=== PATIENT | female | born 1955 | race Hispanic/Latino ===

== ENCOUNTER 2018-10-30 20:27 | Observation (INO) | payer OTHER ==
--- NOTE | 2018-10-30 22:35 | ER ---
Nurse's Notes [facility] Name: Lety Beach Age: 63 yrs Sex: Female : 1955 Arrival Date: 10/30/2018 Time: 20:31 Bed 7 Private MD: Diagnosis: Petechial Hemorrhages parietal lobes Presentation: 10/30 20:35 Presenting complaint: Patient states: that she was standing in the kitchen, went to turn and was knocked over by the dogs. Did hit her head on the right side. Also having pain to right hand, right hip and right ankle. Transition of care: patient was not received from another setting of care. Onset of symptoms was October 30, 2018 at 12:00. Risk Assessment: Do you want to hurt yourself or someone else? Patient reports no desire to harm self or others. Initial Sepsis Screen: Does the patient meet any 2 criteria? No. Patient's initial sepsis screen is negative. Does the patient have a suspected source of infection? No. Patient's initial sepsis screen is negative. Care prior to arrival: Ice pack applied to injury. Medication(s) given: Mobic 7.5 mg at noon. 20:35 Method Of Arrival: Wheelchair 20:35 Acuity: RICHAR 3 fc Historical: - Allergies: 20:48 EGG/POULTRY; fc - Home Meds: 20:48 lisinopril 20 mg Oral tab 1 tab once daily [Active]; Lexapro 20 mg Oral tab 1 tab once fc daily [Active]; atorvastatin 20 mg oral tab 1 tab once daily [Active]; metformin 1,000 mg Oral tab 1 tab 2 times per day [Active]; - PMHx: 20:48 Diabetes - NIDDM; Depression; Hypertension; High Cholesterol; fc - PSHx: 20:48 Hysterectomy; moles removed from left breast and right hand; - Immunization history:: Last tetanus immunization: unknown, Flu vaccine is up to date. - Social history:: Smoking status: Patient uses tobacco products, smokes one-half pack cigarettes per day, Patient/guardian denies using alcohol, street drugs. - Ebola Screening: : Patient negative for fever greater than or equal to 101.5 degrees Fahrenheit, and additional compatible Ebola Virus Disease symptoms Patient denies exposure to infectious person Patient denies travel to an Ebola-affected area in the 21 days before illness onset. Screenin:46 Abuse screen: Denies threats or abuse. Nutritional screening: No deficits noted. fc Tuberculosis screening: No symptoms or risk factors identified. Fall Risk None identified. Assessment: 21:01 General: Appears in no apparent distress. uncomfortable, Behavior is calm, cooperative, aj1 appropriate for age. Pain: Complains of pain in face, right hip, dorsal aspect of proximal phalanx of right thumb, palmar aspect of proximal phalanx of right thumb and right ankle. Neuro: Level of Consciousness is awake, alert, obeys commands, Oriented to person, place, time, situation, Speech is normal, Facial symmetry appears normal, Denies LOC. Cardiovascular: Patient's skin is warm and dry. Respiratory: Airway is patent Respiratory effort is even, unlabored, Respiratory pattern is regular, symmetrical. GI: No signs and/or symptoms were reported involving the gastrointestinal system. : No signs and/or symptoms were reported regarding the genitourinary system. EENT: No signs and/or symptoms were reported regarding the EENT system. Derm: No signs and/or symptoms reported regarding the dermatologic system. Skin is pink, warm \\T\\ dry. normal. Musculoskeletal: Range of motion: limited in right hip, right ankle, MCP of right thumb and CMC of right thumb Swelling present in right ankle. 22:25 Reassessment: Patient appears in no apparent distress at this time. Patient and/or ed1 family updated on plan of care and expected duration. Pain level reassessed. Patient is alert, oriented x 3, equal unlabored respirations, skin warm/dry/pink. Patient states symptoms have not improved. 23:44 Reassessment: Patient appears in no apparent distress at this time. Patient and/or ed1 family updated on plan of care and expected duration. Pain level reassessed. Patient is alert, oriented x 3, equal unlabored respirations, skin warm/dry/pink. Patient states symptoms have not improved. 23:51 Reassessment: Attempt to call report, spoke with Janet "Nurse is currently busy with ed1 another patient right now. Will call back.". Vital Signs: 20:35 BP 126 / 64; Pulse 84; Resp 18; Temp 98.3(O); Pulse Ox 98% on R/A; Weight 102.97 kg fc (R); Height 5 ft. 4 in. (162.56 cm) (R); Pain 8/10; 22:24 BP 103 / 56; Pulse 74; Resp 16; Pulse Ox 100% on R/A; mt 22:25 BP 103 / 54; Pulse 73; Resp 17; Pulse Ox 100% on R/A; Pain 8/10; ed1 23:44 BP 110 / 48; Pulse 80; Resp 18; Temp 97.2(O); Pulse Ox 98% on R/A; Pain 8/10; ed1 10/31 00:21 Pain 6/10; ed1 10/30 20:35 Body Mass Index 38.96 (102.97 kg, 162.56 cm) ED Course: 10/30 20:31 Patient arrived in ED. ag3 20:35 Arm band placed on Patient placed in an exam room, on a stretcher. fc 20:36 Leonard Caldwell PA is PHCP. jr8 20:36 Jorje Reno MD is Attending Physician. jr8 20:45 Triage completed. fc 20:46 Patient has correct armband on for positive identification. Bed in low position. Call fc light in reach. Side rails up X 1. Pulse ox on. NIBP on. 20:46 No provider procedures requiring assistance completed. 20:54 Gila Kaiser, RN is Primary Nurse. aj1 21:[address] via stretcher. vm2 21:17 CT completed. Patient tolerated procedure well. Patient moved to radiology. vm2 21:17 CT Head Brain wo Cont In Process Unspecified. EDMS 21:34 XRAY Hand RIGHT 3 View In Process Unspecified. EDMS 21:34 XRAY Hip RIGHT 2 view In Process Unspecified. EDMS 21:34 XRAY Ankle RIGHT 3 view In Process Unspecified. EDMS 22:24 Primary Nurse role handed off by Gila Kaiser, RN ed1 22:24 Kavita Greene, LUIS EDUARDO is Primary Nurse. ed1 22:34 Deb Estevez MD is Hospitalizing Provider. jr8 22:35 Inserted saline lock: 20 gauge in right antecubital area, using aseptic technique. mt Blood collected. 22:46 Initial lab(s) drawn, by co, sent to lab. Surya wrap to right ankle. ed1 10/31 00:21 Patient admitted, IV remains in place. intact, No redness/swelling at site. ed1 Administered Medications: 10/30 23:46 Drug: fentaNYL (PF) 50 mcg Route: IVP; Site: right antecubital; ed1 10/31 00:21 Follow up: Pain 6/10 Adult; Response: No adverse reaction; Pain is decreased ed1 10/30 23:46 Drug: Zofran 4 mg Route: IVP; Site: right antecubital; ed1 10/31 00:22 Follow up: Response: No adverse reaction; Nausea is decreased ed1 Outcome: 10/30 22:34 Decision to Hospitalize by Provider. jr8 10/31 00:19 Admitted to Med/surg accompanied by tech, family with patient, via stretcher, room 202, ed1 with chart. Condition: stable Discharge instructions given to patient, Instructed on the need for admit, Demonstrated understanding of instructions. 00:32 Patient left the ED. ed1 Signatures: Dispatcher [employer] EDMS Gila Kaiser RN RN aj1 Shanell Beatty RN RN fc Riggs, Erika, RN RN ed1 Leonard Caldwell PA PA jr8 Natalia Guillen Moriah mt Gomez, Alice ag3 Corrections: (The following items were deleted from the chart) 10/30 23:45 22:46 Inserted saline lock: 20 gauge in right antecubital area, using aseptic ed1 technique. ed1
--- NOTE | 2018-10-30 22:35 | EDPHYS ---
Physician Documentation [facility] Name: Lety Beach Age: 63 yrs Sex: Female : 1955 Arrival Date: 10/30/2018 Time: 20:31 Bed 7 Private MD: ED Physician Jorje Reno HPI: 10/30 21:36 This 63 yrs old Female presents to ER via Wheelchair with complaints of Fall jr8 Injury. 21:36 Onset: The symptoms/episode began/occurred acutely, today. Associated injuries: The jr8 patient sustained injury to the head, right arm and right leg. Severity of symptoms: At their worst the symptoms were mild, in the emergency department the symptoms are unchanged. The patient has not experienced similar symptoms in the past. The patient has not recently seen a physician. Tripped while trying to manage her dogs at home. Denies LOC. Landed on right side. Complains of right ankle, hand, hip pain. Complains of head pain . Historical: - Allergies: 20:48 EGG/POULTRY; fc - Home Meds: 20:48 lisinopril 20 mg Oral tab 1 tab once daily [Active]; Lexapro 20 mg Oral tab 1 tab once fc daily [Active]; atorvastatin 20 mg oral tab 1 tab once daily [Active]; metformin 1,000 mg Oral tab 1 tab 2 times per day [Active]; - PMHx: 20:48 Diabetes - NIDDM; Depression; Hypertension; High Cholesterol; fc - PSHx: 20:48 Hysterectomy; moles removed from left breast and right hand; fc - Immunization history:: Last tetanus immunization: unknown, Flu vaccine is up to date. - Social history:: Smoking status: Patient uses tobacco products, smokes one-half pack cigarettes per day, Patient/guardian denies using alcohol, street drugs. - Ebola Screening: : Patient negative for fever greater than or equal to 101.5 degrees Fahrenheit, and additional compatible Ebola Virus Disease symptoms Patient denies exposure to infectious person Patient denies travel to an Ebola-affected area in the 21 days before illness onset. ROS: 21:36 Eyes: Negative for injury, pain, redness, and discharge, ENT: Negative for injury, jr8 pain, and discharge, Neck: Negative for injury, pain, and swelling, Cardiovascular: Negative for chest pain, palpitations, and edema, Respiratory: Negative for shortness of breath, cough, wheezing, and pleuritic chest pain, Abdomen/GI: Negative for abdominal pain, nausea, vomiting, diarrhea, and constipation, Back: Negative for injury and pain, Skin: Negative for injury, rash, and discoloration. 21:36 MS/extremity: Positive for pain, tenderness, of the right hand, right ankle, right hip. 21:36 Neuro: Positive for headache, Negative for altered mental status, dizziness, gait disturbance, hearing loss, loss of consciousness, numbness, seizure activity, speech changes, syncope, near syncope, tingling, tinnitus, tremor, visual changes, weakness. Exam: 21:43 Eyes: Pupils equal round and reactive to light, extra-ocular motions intact. Lids and jr8 lashes normal. Conjunctiva and sclera are non-icteric and not injected. Cornea within normal limits. Periorbital areas with no swelling, redness, or edema. ENT: Nares patent. No nasal discharge, no septal abnormalities noted. Tympanic membranes are normal and external auditory canals are clear. Oropharynx with no redness, swelling, or masses, exudates, or evidence of obstruction, uvula midline. Mucous membranes moist. Neck: Trachea midline, no thyromegaly or masses palpated, and no cervical lymphadenopathy. Supple, full range of motion without nuchal rigidity, or vertebral point tenderness. No Meningismus. Cardiovascular: Regular rate and rhythm with a normal S1 and S2. No gallops, murmurs, or rubs. Normal PMI, no JVD. No pulse deficits. Respiratory: Lungs have equal breath sounds bilaterally, clear to auscultation and percussion. No rales, rhonchi or wheezes noted. No increased work of breathing, no retractions or nasal flaring. Abdomen/GI: Soft, non-tender, with normal bowel sounds. No distension or tympany. No guarding or rebound. No evidence of tenderness throughout. Back: No spinal tenderness. No costovertebral tenderness. Full range of motion. Skin: Warm, dry with normal turgor. Normal color with no rashes, no lesions, and no evidence of cellulitis. Neuro: Awake and alert, GCS 15, oriented to person, place, time, and situation. Cranial nerves II-XII grossly intact. Motor strength 5/5 in all extremities. Sensory grossly intact. Cerebellar exam normal. Normal gait. 21:43 Musculoskeletal/extremity: Extremities: grossly normal except: noted in the right hand: pain, tenderness, noted in the right ankle: pain, swelling, tenderness, lateral malleolus , noted in the right hip: pain, tenderness, Circulation is intact in all extremities. Sensation intact. Vital Signs: 20:35 BP 126 / 64; Pulse 84; Resp 18; Temp 98.3(O); Pulse Ox 98% on R/A; Weight 102.97 kg fc (R); Height 5 ft. 4 in. (162.56 cm) (R); Pain 8/10; 22:24 BP 103 / 56; Pulse 74; Resp 16; Pulse Ox 100% on R/A; mt 22:25 BP 103 / 54; Pulse 73; Resp 17; Pulse Ox 100% on R/A; Pain 8/10; ed1 23:44 BP 110 / 48; Pulse 80; Resp 18; Temp 97.2(O); Pulse Ox 98% on R/A; Pain 8/10; ed1 10/31 00:21 Pain 6/10; ed1 10/30 20:35 Body Mass Index 38.96 (102.97 kg, 162.56 cm) fc MDM: 10/30 20:36 Patient medically screened. jr8 22:27 Data reviewed: vital signs, nurses notes, lab test result(s), radiologic studies, CT jr8 scan, plain films. Data interpreted: Pulse oximetry: on room air is 100 %. Interpretation: normal. Counseling: I had a detailed discussion with the patient and/or guardian regarding: the historical points, exam findings, and any diagnostic results supporting the discharge/admit diagnosis, lab results, radiology results, the need for further work-up and treatment in the hospital. ED course: Consulted Dr. Bean about the petechial hemorrhages noted bilaterally. Agrees that she does not need to be transferred. Can be observed here and repeat image in the morning. Dr. Estevez agrees as well. Patient will be observed upstairs . 10/30 22:27 Order name: CBC w/o diff; Complete Time: 23:02 jr8 10/30 22:27 Order name: Basic Metabolic Panel; Complete Time: 23:15 jr8 10/30 23:20 Order name: CBC with Automated Diff EDAL 10/30 23:20 Order name: CBC with Automated Diff EDMS 10/30 23:20 Order name: Comprehensive Metabolic Panel EDMS 10/30 23:20 Order name: Comprehensive Metabolic Panel EDMS 10/30 21:02 Order name: XRAY Hand RIGHT 3 View jr8 10/30 21:02 Order name: CT Head Brain wo Cont jr8 10/30 21:02 Order name: XRAY Hip RIGHT 2 view jr8 10/30 21:02 Order name: XRAY Ankle RIGHT 3 view 8 10/30 23:21 Order name: Urine Drug Screen EDMS 10/30 23:21 Order name: CBC with Automated Diff EDMS 10/30 23:22 Order name: Comprehensive Metabolic Panel EDAL 10/30 22:27 Order name: IV; Complete Time: 22:46 8 10/30 22:27 Order name: Surya Wrap; Complete Time: 22:46 [facility] 10/30 23:20 Order name: CONS Pharmacy Consult EDAL 10/30 23:20 Order name: CONS Physician Consult EDAL 10/30 23:20 Order name: [facility] EDAL Administered Medications: 23:46 Drug: fentaNYL (PF) 50 mcg Route: IVP; Site: right antecubital; ed1 10/31 00:21 Follow up: Pain 6/10 Adult; Response: No adverse reaction; Pain is decreased ed1 10/30 23:46 Drug: Zofran 4 mg Route: IVP; Site: right antecubital; ed1 10/31 00:22 Follow up: Response: No adverse reaction; Nausea is decreased ed1 Disposition: 06:10 Co-signature as Attending Physician, Jorje Reno MD I agree with the assessment and tw4 plan of care. Disposition: 10/30/18 22:34 Hospitalization ordered by Deb Estevez for Observation. Preliminary diagnosis is Petechial Hemorrhages parietal lobes . - Bed requested for Telemetry/MedSurg (observation). - Status is Observation. ed1 - Condition is Stable. - Problem is new. - Symptoms have improved. UTI on Admission? No Signatures: Dispatcher [employer] EDAL Shanell Beatty RN LUIS EDUARDO Kavita Greene RN RN ed1 Leonard Caldwell, WAQAR PA jr8 Deja Campuzano RN RN cg Wadley, Terrence, MD MD tw4 Corrections: (The following items were deleted from the chart) 10/30 23:31 22:34 Hospitalization Ordered by Deb Estevez MD for Observation. Preliminary cg diagnosis is Petechial Hemorrhages parietal lobes . Bed requested for Telemetry/MedSurg (observation). Status is Observation. Condition is Stable. Problem is new. Symptoms have improved. UTI on Admission? No. jr8 10/31 00:32 10/30 23:31 10/30/2018 22:34 Hospitalization Ordered by Deb Estevez MD for ed1 Observation. Preliminary diagnosis is Petechial Hemorrhages parietal lobes . Bed requested for Telemetry/MedSurg (observation). Status is Observation. Condition is Stable. Problem is new. Symptoms have improved. UTI on Admission? No. cg
[2018-10-30 22:51] LABS: Hematocrit 41.6 % (36.0-45.0); MPV 9.5 fL (7.6-11.3); RBC Red Blood Cell Count 4.48 M/uL (3.86-4.86)
[2018-10-30] MEDS ORDERED: MORPHINE 2 MG/ML SYR IV PRN (23:15)
[2018-10-30] MEDS ORDERED: ONDANSETRON 4 MG/2 ML VIAL IV PRN (23:15)
[2018-10-30] MEDS ORDERED: NA CHLORIDE 0.9% 1,000 ML IV SCH (23:45)
[2018-10-30] MEDS ORDERED: FENTANYL CITR 100 MCG/2 ML ONE (23:51)
[2018-10-31] MEDS: ACETAMINOPHEN 500 MG TAB PO PRN ×2 (00:42→06:20)
[2018-10-31 01:00] VITALS: BMI 39.2
[2018-10-31 05:58] LABS: Absolute Lymphocytes (CBC) 3.8 K/uL (0.7-4.9); Absolute Monocytes 0.6 K/uL (0.1-1.3); Absolute Neutrophil 4.1 K/uL (1.8-8.0); Basophils % 0.7 % (0-1.3); Eosinophils % 2.3 % (0-4.4); Hematocrit 38.4 % (36.0-45.0); Lymphocytes % 43.4 % (15.3-44.8); MPV 9.1 fL (7.6-11.3); RBC Red Blood Cell Count 4.16 M/uL (3.86-4.86)
[2018-10-31 06:14] LABS: Albumin 3.1 g/dL (3.4-5.0); Bilirubin Total 0.3 mg/dL (0.2-1.0); Potassium 3.9 mmol/L (3.5-5.1); Protein, Total 6.6 g/dL (6.4-8.2)
[2018-10-31 06:24] LABS: Urine Appearance CLEAR; Urine Bilirubin NEGATIVE (NEG); Urine Blood NEGATIVE (NEG); Urine Color YELLOW; Urine Glucose NEGATIVE (NEG); Urine Protein NEGATIVE (NEG); Urine Urobilinogen 0.2 mg/dL (0.2-1.0); Urine pH 5.5 (5.0-7.0)
[2018-10-31 06:25] LABS: Urine Microscopic Reflex NO UMIC
[2018-10-31 06:32] LABS: Barbiturates NEGATIVE (NEGATIVE); Benzodiazepines NEGATIVE (NEGATIVE); Cocaine NEGATIVE (NEGATIVE); METHAMPHETAM NEGATIVE (NEGATIVE); Methadone NEGATIVE (NEGATIVE); Opiates NEGATIVE (NEGATIVE); Phencyclidine NEGATIVE (NEGATIVE); THC Cannibis NEGATIVE (NEGATIVE)
--- NOTE | 2018-10-31 07:59 | RAD REPORT ---
EXAM DESCRIPTION: RAD - Ankle Right 3 View - 10/30/2018 9:37 pm CLINICAL HISTORY: Right ankle pain status post fall FINDINGS: No acute fracture or dislocation is seen. Bony density adjacent to the medial malleolus likely is chronic
[2018-10-31] MEDS ORDERED: PNEUMOCOCCAL VACCINE 0.5 ML IMVAC ONE (08:00)
--- NOTE | 2018-10-31 08:13 | P.HP ---
Certification for Inpatient Patient admitted to: Observation With expected LOS: <2 Midnights Patient will require the following post-hospital care: None Practitioner: I am a practitioner with admitting privileges, knowledge of patient current condition, hospital course, and medical plan of care. Services: Services provided to patient in accordance with Admission requirements found in Title 42 Section 412.3 of the Code of Federal Regulations Patient History Date of Service: 10/31/18 Reason for admission: Status post fall with ankle & wrist sprain History of Present Illness: Patient is a 63-year-old female who was walking her dogs when she got hit in the leg and fell. She fell on the right side and she also states that she hit her head. She is not having any pain except in her right wrist and her right ankle. X-rays have been negative. She was admitted to the hospital for further workup. She had a CT of the brain which showed some questionable petechiae. 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 She has no pronator drift. She has weakness in her right ankle and her right wrist which were sprain when she fell. Spoke with Dr. Bean and he wanted to observe patient overnight, and if her symptoms are stable then she can be discharged this a.m. Allergies eggs Allergy (Uncoded 10/31/18 01:06) Itching/Hives/Rash Home Medications: Atorvastatin Calcium [Lipitor] 20 mg PO BID 10/31/18 Escitalopram [Lexapro] 20 mg PO DAILY 10/31/18 Levothyroxine [Synthroid] 40 mcg PO DAILY 10/31/18 Lisinopril 20 mg PO DAILY 10/31/18 Metformin HCl [Metformin ER Osmotic] 1,000 mg PO BID 10/31/18 - Past Medical/Surgical History Has patient received pneumonia vaccine in the past: Yes Diabetic: Yes -: Diabetes NIDDM -: Depression -: Hypertension -: HIgh Cholesterol -: Hypothyroid -: Hysterectomy -: MOles removed from left breast and right hand - Family History Mother Medical History: Heart disease, Cancer Father Medical History: Heart disease, Diabetes, Stroke - Social History Smoking Status: Current some day smoker Alcohol use: No CD- Drugs: No Caffeine use: Yes Place of Residence: Home Review of Systems 10-point ROS is otherwise unremarkable Physical Examination - Vital Signs Temperature: 97.0 F Blood Pressure: 105/51 Pulse: 70 Respirations: 20 Pulse Ox (%): 98 - Physical Exam General: Alert, In no apparent distress, Oriented x3 HEENT: Atraumatic, PERRLA, Mucous membr. moist/pink, EOMI, Sclerae nonicteric Neck: Supple, 2+ carotid pulse no bruit, No LAD, Without JVD or thyroid abnormality Respiratory: Clear to auscultation bilaterally, Normal air movement Cardiovascular: Regular rate/rhythm, Normal S1 S2, No murmurs Gastrointestinal: Normal bowel sounds, Soft and benign, Non-distended, No tenderness Musculoskeletal: Tenderness (Right ankle and right wrist) Integumentary: No rashes Neurological: Normal gait, Normal speech, Normal strength at 5/5 x4 extr, Normal tone, Sensation intact (Except for right side of the tongue), Cranial nerves 3-12 intact, Normal affect Lymphatics: No axilla or inguinal lymphadenopathy - Studies Laboratory Data (last 24 hrs) 10/30/18 22:40: Sodium 141, Potassium 4.0, BUN 19 H, Creatinine 0.68, Glucose 130 H 10/30/18 22:40: WBC 11.1 H, Hgb 14.0, Hct 41.6, Plt Count 303 Assessment & Plan - Problems (Diagnosis) (1) Status post fall Current Visit: Yes Status: Acute (2) Wrist sprain Current Visit: Yes Status: Acute (3) Ankle sprain Current Visit: Yes Status: Acute - Plan Plan: 1. Observation over 24 hr 2. Neurochecks 3. Neurology consultation appreciated-see patient in the morning 4. Further imaging study in the morning to further evaluate 5. GI and DVT prophylaxis Discharge Plan: Home Plan to discharge in: 24 Hours - Advance Directives Does patient have a Living Will: No Does patient have a Durable POA for Healthcare: No - Code Status/Comfort Care Code Status Assessed: Yes Code Status: Full Code Critical Care: No Time Spent Managing PTS Care (In Minutes): 45
--- NOTE | 2018-10-31 08:32 | RAD REPORT ---
EXAM DESCRIPTION: RAD - Hip Right 2 View - 10/30/2018 9:37 pm CLINICAL HISTORY: Right hip pain FINDINGS: No fracture or dislocation is seen. If the patient continues have symptoms to suggest an occult fracture MRI would be recommended
--- NOTE | 2018-10-31 08:37 | RAD REPORT ---
EXAM DESCRIPTION: RAD - Hand Right 3 View - 10/30/2018 9:37 pm CLINICAL HISTORY: Right hand pain status post injury FINDINGS: No fracture or dislocation is seen.
[2018-10-31] MEDS ORDERED: ESCITALOPRAM 20 MG TAB PO SCH (09:00)
[2018-10-31] MEDS ORDERED: ATORVASTATIN 20 MG TAB PO SCH (09:00)
[2018-10-31] MEDS ORDERED: LEVOTHYROXINE SOD 0.05 MG TABLET PO SCH (09:00)
[2018-10-31] MEDS ORDERED: LISINOPRIL 20 MG TAB PO SCH (09:00)
[2018-10-31] MEDS ORDERED: HOME MED 1 EA UNK (Metformin Hcl [Metformin Er Osmotic] 1,000 MG) PO SCH (09:00)
[2018-10-31 10:30] VITALS: O2SAT 97
--- NOTE | 2018-10-31 10:31 | RAD REPORT ---
EXAM DESCRIPTION: MRI - Brain Wo Cont - 10/31/2018 8:29 am CLINICAL HISTORY: Fall, syncope, stroke-like symptoms COMPARISON: CT head October 30 TECHNIQUE: Sagittal T1-weighted images were obtained along with axial PD, heavily T2-weighted and T2 -FLAIR images. Axial DWI and ADC mapping sequences were also obtained along with coronal heavily T2-w eighted images. FINDINGS: No epidural or subdural hematoma is identifiable. No acute infarction changes are seen. Th ere is no mass effect, edema or shift of midline structures. Ventricles are normal. Earlier CT study detailed subtle petechial hemorrhages involving each parietal lobe. These are not clearly identifiabl e on MR imaging. Patient has minimal chronic ischemic change. No atrophy identified. No axonal shear injuries are identifiable. Ly-matter/white matter junction is preserved. Signal voids are seen as a normal finding in the major intracranial vessels. No globe or orbital content abnormality. No sella or supra sella abnormality. Mastoid air cells and paranasal sinuses are clear. IMPRESSION: No acute infarction changes. No epidural or subdural hematoma identified. Earlier CT study detailed petechial hemorrhages of each parietal lobe. CT finding is subtle. There are no MR findings to would indicate petechial hemorrhage association with an infarction. No ax onal shear injury or other significant brain injury identifiable. It is possible the CT finding repre sented a small amount of posttraumatic subarachnoid hemorrhage. This type of hemorrhage does not requ desiree any emergent intervention.
--- NOTE | 2018-10-31 10:40 | RAD REPORT ---
EXAM DESCRIPTION: CT - Head Brain Wo Cont - 10/30/2018 9:46 pm CLINICAL HISTORY: 63 years Female, fall injury TECHNIQUE: 5 mm axial images were obtained along with 3 mm reformatted coronal and sagittal images. This exam was performed according to our departmental dose-optimization program, which includes autom ated exposure control, adjustment of the mA and/or kV according to patient size and/or use of iterati ve reconstruction technique. COMPARISON: None. FINDINGS: There is evidence of small finger hemorrhages involving the cortical sulci of the parietal lobes posteriorly bilaterally. The cortical sulci, ventricles, and cisterns are within normal limits. There are no areas of altered attenuation identified to suggest acute hemorrhage, infarction, or mass lesion. The visualized portions of the paranasal sinuses and mastoid air cells are clear. IMPRESSION: 1. Small petechial hemorrhages involving the cortical sulci of the posterior portions of the parietal lobes bilaterally. Electronically signed by: Rory Blanco MD 10/30/2018 9:40 PM SOFTWARE RELEASE ENGINEER Due to temporary technical issues with the PACS/Fluency reporting system, reports are being signed by the in house radiologist as a courtesy to ensure prompt reporting. The interpreting radiologist is f ully responsible for the content of the report.
[2018-10-31 12:50] VITALS: BP 117/59; TEMP 97.9
[2018-10-31] MEDS ORDERED: METFORMIN HCL 500 MG TAB PO SCH (17:00)
[2018-11-01] MEDS ORDERED: LEVOTHYROXINE SOD 0.05 MG TABLET PO SCH (06:30)
== END 2018-10-31 13:30 | disposition home or self-care (01) ==
LOC: ER 20:27 → ERHOLD 10-31 00:03 → 2ND 10-31 00:19
PROVIDERS: ADMIT Hospitalist; ATTEND Hospitalist
DX: S93.401A Sprain of unspecified ligament of right ankle, initial encounter (principal); S63.501A Unspecified sprain of right wrist, initial encounter; E11.9 Type 2 diabetes mellitus without complications; I10 Essential (primary) hypertension; E03.9 Hypothyroidism, unspecified; W18.31XA Fall on same level due to stepping on an object, initial encounter; Y92.009 Unspecified place in unspecified non-institutional (private) residence as the place of occurrence of the external cause; Z91.012 Allergy to eggs; F17.210 Nicotine dependence, cigarettes, uncomplicated
CPT/HCPCS: 85025; 80048; 36415 ×2; 82962 ×3; 80307 ×8; 81003; 85027; 80053; 70450; 73130; 73502; 73610; 70551; 96375; 96374; 99285; J3010; J2270; J7030; J2405; G0379; G0378

== ENCOUNTER 2019-07-11 11:23 | Emergency (ER) | payer OTHER ==
[2019-07-11] MEDS ORDERED: TETANUS & DIPHTHERIA TOX,ADULT 0.5 ML VIAL ONE (12:22)
--- NOTE | 2019-07-11 12:55 | RAD REPORT ---
EXAM DESCRIPTION: RAD - Foot Right 3 View - 07/11/2019 12:38 pm CLINICAL HISTORY: puncture wound COMPARISON: <Comparisons> FINDINGS: Soft tissue swelling is seen along the lateral aspect of the foot. Tiny calcaneal spurs ev ident. No fracture or foreign body seen.
--- NOTE | 2019-07-11 13:09 | EDPHYS ---
Physician Documentation [facility] Name: Lety Beach Age: 63 yrs Sex: Female : 1955 Arrival Date: 07/11/2019 Time: 11:26 Bed 27 Private MD: Jc [facility] ED Physician Edgard Williamson HPI: 07/11 13:04 This 63 yrs old Female presents to ER via Ambulatory with complaints of ernie Stepped on nail. 13:04 The patient presents with pain, a puncture wound. The complaints affect the right foot. ernie Context: The problem was sustained outdoors. Onset: The symptoms/episode began/occurred just prior to arrival. Modifying factors: The symptoms are alleviated by nothing, the symptoms are aggravated by nothing. Associated signs and symptoms: The patient has no apparent associated signs or symptoms. Severity of symptoms: At their worst the symptoms were mild, moderate, in the emergency department the symptoms are unchanged. The patient has not experienced similar symptoms in the past. Historical: - Allergies: 11:30 EGG/POULTRY; aj1 - Home Meds: 11:30 atorvastatin 20 mg Oral tab 1 tab once daily [Active]; Lexapro 20 mg Oral tab 1 tab aj1 once daily [Active]; lisinopril 20 mg Oral tab 1 tab once daily [Active]; metformin 1,000 mg Oral tab 1 tab 2 times per day [Active]; - PMHx: 11:30 Depression; Diabetes - NIDDM; High Cholesterol; Hypertension; aj1 - Immunization history:: Flu vaccine is up to date. Last tetanus immunization: unknown. - Social history:: Smoking status: Patient uses tobacco products, 4-5 cigarettes per day. - Ebola Screening: : Patient denies travel to an Ebola-affected area in the 21 days before illness onset. - Family history:: not pertinent. ROS: 13:04 Constitutional: Negative for fever, chills, and weight loss, Eyes: Negative for injury, ernie pain, redness, and discharge, ENT: Negative for injury, pain, and discharge, Neck: Negative for injury, pain, and swelling, Cardiovascular: Negative for chest pain, palpitations, and edema, Respiratory: Negative for shortness of breath, cough, wheezing, and pleuritic chest pain, Abdomen/GI: Negative for abdominal pain, nausea, vomiting, diarrhea, and constipation, Back: Negative for injury and pain, : Negative for injury, bleeding, discharge, and swelling, Skin: Negative for injury, rash, and discoloration, Neuro: Negative for headache, weakness, numbness, tingling, and seizure, Psych: Negative for depression, anxiety, suicide ideation, homicidal ideation, and hallucinations, Endocrine: Negative for neck swelling, polydipsia, polyuria, polyphagia, and marked weight changes, Hematologic/Lymphatic: Negative for swollen nodes, abnormal bleeding, and unusual bruising. 13:04 MS/extremity: Positive for decreased range of motion, pain, swelling, tenderness, of the right foot. Exam: 13:04 Constitutional: This is a well developed, well nourished patient who is awake, alert, ernie and in no acute distress. Head/Face: Normocephalic, atraumatic. Eyes: Pupils equal round and reactive to light, extra-ocular motions intact. Lids and lashes normal. Conjunctiva and sclera are non-icteric and not injected. Cornea within normal limits. Periorbital areas with no swelling, redness, or edema. ENT: Nares patent. No nasal discharge, no septal abnormalities noted. Tympanic membranes are normal and external auditory canals are clear. Oropharynx with no redness, swelling, or masses, exudates, or evidence of obstruction, uvula midline. Mucous membranes moist. Neck: Trachea midline, no thyromegaly or masses palpated, and no cervical lymphadenopathy. Supple, full range of motion without nuchal rigidity, or vertebral point tenderness. No Meningismus. Chest/axilla: Normal chest wall appearance and motion. Nontender with no deformity. No lesions are appreciated. Cardiovascular: Regular rate and rhythm with a normal S1 and S2. No gallops, murmurs, or rubs. Normal PMI, no JVD. No pulse deficits. Respiratory: Lungs have equal breath sounds bilaterally, clear to auscultation and percussion. No rales, rhonchi or wheezes noted. No increased work of breathing, no retractions or nasal flaring. Abdomen/GI: Soft, non-tender, with normal bowel sounds. No distension or tympany. No guarding or rebound. No evidence of tenderness throughout. Back: No spinal tenderness. No costovertebral tenderness. Full range of motion. Female : Normal external genitalia. Skin: Warm, dry with normal turgor. Normal color with no rashes, no lesions, and no evidence of cellulitis. Neuro: Awake and alert, GCS 15, oriented to person, place, time, and situation. Cranial nerves II-XII grossly intact. Motor strength 5/5 in all extremities. Sensory grossly intact. Cerebellar exam normal. Normal gait. Psych: Awake, alert, with orientation to person, place and time. Behavior, mood, and affect are within normal limits. 13:04 Musculoskeletal/extremity: ROM: intact in all extremities, full active range of motion, full passive range of motion, Pulses: Sensation intact. Compartment Syndrome exam of affected extremity: is normal. DVT Exam: no swelling, negative Homans' sign noted on exam, no appreciated bluish discoloration, no erythema, no increased warmth, pain, tenderness. Vital Signs: 11:30 BP 158 / 56; Pulse 70; Resp 18; Temp 97.5; Pulse Ox 98% on R/A; Weight 90.72 kg (R); 1 Height 5 ft. 3 in. (160.02 cm) (R); Pain 0/10; 11:30 Body Mass Index 35.43 (90.72 kg, 160.02 cm) [facility] MDM: 11:55 Patient medically screened. [facility] 13:08 Data reviewed: vital signs, nurses notes, radiologic studies, plain films. [facility] 07/11 12:11 Order name: Foot Right 3 View XRAY; Complete Time: 13:10 [facility] 07/11 13:04 Order name: Wound dressing; Complete Time: 13:22 [facility] 07/11 13:10 Order name: Post-op shoe; Complete Time: 13:22 [facility] Administered Medications: 12:26 Drug: Tetanus-Diphtheria Toxoid Adult 0.5 ml {Guitar Player: Ohmx. Exp: la1 02/06/2021. Lot #: [id number]. } Route: IM; Site: right deltoid; 13:22 Follow up: Response: No adverse reaction [facility] 13:22 Not Given (Other Intervention Used): Bactroban Ointment 2 % 1 application Topical once vt 13:23 Drug: LevOfloxacin 500 mg Route: PO; la1 Disposition: 07/11/19 13:09 Discharged to Home. Impression: Puncture wound without foreign body, right foot. - Condition is Stable. - Discharge Instructions: Puncture Wound, Puncture Wound, [id number]. - Prescriptions for Levaquin 500 mg Oral Tablet - take 1 tablet by ORAL route once daily for 7 days; 7 tablet. Tylenol- Codeine #3 300-30 mg Oral Tablet - take 2 tablets by ORAL route every 6 hours As needed; 26 tablet. - Medication Reconciliation Form, Thank You Letter, Antibiotic Education, Prescription Opioid Use form. - Follow up: Dallas Greene DO; When: 2 - 3 days; Reason: Recheck today's complaints, Continuance of care, Re-evaluation by your physician. - Problem is new. - Symptoms have improved. Signatures: Dispatcher [employer] EDGila Andrews RN RN aj1 Edgard Williamson MD MD cha Attema, Lee RN RN la1 Corrections: (The following items were deleted from the chart) 13:24 13:09 07/11/2019 13:09 Discharged to Home. Impression: Puncture wound without foreign la1 body, right foot. Condition is Stable. Forms are Medication Reconciliation Form, Thank You Letter, Antibiotic Education, Prescription Opioid Use. Follow up: Dallas Greene; When: 2 - 3 days; Reason: Recheck today's complaints, Continuance of care, Re-evaluation by your physician. Problem is new. Symptoms have improved. ernie
--- NOTE | 2019-07-11 13:09 | ER ---
Nurse's Notes [facility] Name: Lety Beach Age: 63 yrs Sex: Female : 1955 Arrival Date: 07/11/2019 Time: 11:26 Bed 27 Private MD: Dallas Greene Diagnosis: Puncture wound without foreign body, right foot Presentation: 07/11 11:27 Presenting complaint: Patient states: "I went for a walk with my granddaughter and I aj1 stepped on a nail" Puncture wound noted to right foot. Last tetanus is unknown. Transition of care: patient was not received from another setting of care. Onset of symptoms was July 11, 2019 at 06:30. Risk Assessment: Do you want to hurt yourself or someone else? Patient reports no desire to harm self or others. Initial Sepsis Screen: Does the patient meet any 2 criteria? No. Patient's initial sepsis screen is negative. Does the patient have a suspected source of infection? No. Patient's initial sepsis screen is negative. Care prior to arrival: None. 11:27 Method Of Arrival: Ambulatory aj1 11:27 Acuity: RICHAR 4 aj1 Triage Assessment: 11:30 General: Appears in no apparent distress. comfortable, Behavior is calm, cooperative, aj1 appropriate for age. Pain: Denies pain. Neuro: Level of Consciousness is awake, alert, obeys commands. Cardiovascular: Patient's skin is warm and dry. Respiratory: Airway is patent Respiratory effort is even, unlabored, Respiratory pattern is regular, symmetrical. Historical: - Allergies: 11:30 EGG/POULTRY; aj1 - Home Meds: 11:30 atorvastatin 20 mg Oral tab 1 tab once daily [Active]; Lexapro 20 mg Oral tab 1 tab aj1 once daily [Active]; lisinopril 20 mg Oral tab 1 tab once daily [Active]; metformin 1,000 mg Oral tab 1 tab 2 times per day [Active]; - PMHx: 11:30 Depression; Diabetes - NIDDM; High Cholesterol; Hypertension; aj1 - Immunization history:: Flu vaccine is up to date. Last tetanus immunization: unknown. - Social history:: Smoking status: Patient uses tobacco products, 4-5 cigarettes per day. - Ebola Screening: : Patient denies travel to an Ebola-affected area in the 21 days before illness onset. - Family history:: not pertinent. Screenin:18 Abuse screen: Denies threats or abuse. Abuse screen: Denies threats or abuse. la1 Nutritional screening: No deficits noted. Tuberculosis screening: No symptoms or risk factors identified. Fall Risk None identified. Assessment: 12:15 General: Appears in no apparent distress. Behavior is calm, cooperative. Pain: la1 Complains of pain in right foot. Neuro: Level of Consciousness is awake, alert, obeys commands, Oriented to person, place, time, situation. Cardiovascular: Heart tones S1 S2 present Capillary refill < 3 seconds Patient's skin is warm and dry. Respiratory: Airway is patent Respiratory effort is even, unlabored. GI: No signs and/or symptoms were reported involving the gastrointestinal system. : No signs and/or symptoms were reported regarding the genitourinary system. Musculoskeletal: Circulation, motion, and sensation intact. Capillary refill < 3 seconds, is brisk, in bilateral toes. Injury Description: Puncture sustained to arch of right foot. Vital Signs: 11:30 BP 158 / 56; Pulse 70; Resp 18; Temp 97.5; Pulse Ox 98% on R/A; Weight 90.72 kg (R); aj1 Height 5 ft. 3 in. (160.02 cm) (R); Pain 0/10; 11:30 Body Mass Index 35.43 (90.72 kg, 160.02 cm) aj1 ED Course: 11:26 Patient arrived in ED. mr 11:26 Dallas Greene DO is Private Physician. mr 11:30 Triage completed. aj1 11:30 Arm band placed on Patient placed in waiting room, Patient notified of wait time. aj1 11:55 Edgard Williamson MD is Attending Physician. ernie 12:07 Mino Acevedo, LUIS EDUARDO is Primary Nurse. la1 12:18 Patient has correct armband on for positive identification. la1 12:40 Foot Right 3 View XRAY In Process Unspecified. EDMS 12:44 Warm blanket given. Verbal reassurance given. jp3 12:44 Patient maintains SpO2 saturation greater than 95% on room air. jp3 13:08 Dallas Greene DO is Referral Physician. ernie 13:23 No provider procedures requiring assistance completed. Patient did not have IV access la1 during this emergency room visit. Administered Medications: 12:26 Drug: Tetanus-Diphtheria Toxoid Adult 0.5 ml {Sidewalk Inspector: [employer]. Exp: la1 02/06/2021. Lot #: [id number]. } Route: IM; Site: right deltoid; 13:22 Follow up: Response: No adverse reaction la 13:22 Not Given (Other Intervention Used): Bactroban Ointment 2 % 1 application Topical once la1 13:23 Drug: LevOfloxacin 500 mg Route: PO; la1 Outcome: 13:09 Discharge ordered by MD. klein 13:23 Discharged to home ambulatory. kika 13:23 Condition: stable 13:23 Discharge instructions given to patient, Instructed on discharge instructions, follow up and referral plans. medication usage, Demonstrated understanding of instructions, follow-up care, medications, Prescriptions given X 2. 13:24 Patient left the ED. la1 Signatures: Dispatcher [employer] EDMS Gila Kaiser, LUIS EDUARDO RN aj1 Edgard Williamson MD MD cha Rivera, Mary mr Attema, Lee, RN RN la1 Tadeo Manrique jp3
[2019-07-11] MEDS ORDERED: levoFLOXacin 500 MG TAB ONE (13:15)
[2019-07-11 18:11] VITALS: BP 158/56; TEMP 97.5; O2SAT 98
--- OUTSIDE RECORDS SUMMARY | 2019-07-14 05:22 | XMS REPORT ---
:1955 [facility] [address] [place] [address] Care Team Providers Name Role Phone Unavailable Unavailable Unavailable Problems This patient has no known problems. Allergies, Adverse Reactions, Alerts This patient has no known allergies or adverse reactions. Medications This patient has no known medications. Results Test Description Test Time Test Comments Text Results Atomic Results Result Comments ACETAMINOPHEN 2016-12-24 19:47:00 Test Item Value Reference Range Comments ACETAMINPH (test code=94M) <2.0 ug/mL 10.0-30.0 ALCOHOL BLOOD (ETOH)2016-12-24 19:43:00 Test Item Value Reference Range Comments ALCOHOL (test code=56A) <10 mg/dL <=10 Ref Range Change (test Please note the change in code=REF RANGE) reference range COMPREHENSIVE METABOLIC [id number] 19:36:00 Test Item Value Reference Range Comments GLUCOSE (test code=06D) 147 mg/dL 75-100 SODIUM (test code=01A) 141 mmol/L 136-145 POTASSIUM (test code=01B) 4.1 mmol/L 3.6-5.1 CHLORIDE (test code=04A) 110 mmol/L 98-107 CO2 (test code=02A) 25 mmol/L 22-32 ANION GAP (test code=ANG) 10.1 mmol/L BUN (test code=05D) 14 mg/dL 7-18 CREATININE (test code=03E) 0.7 mg/dL 0.4-1.1 BUN/CREA R (test code=BCR) 20 12-20 CALCIUM (test code=09D) 8.7 mg/dL 8.3-9.5 BILI TOTAL (test code=11A) 0.3 mg/dL 0.2-1.0 PROTEIN (test code=07D) 7.8 g/dL 6.4-8.2 ALBUMIN (test code=08D) 3.6 g/dL 3.5-4.8 GLOBULIN (test code=GLB) 4.2 g/dL 1.5-3.8 ALB/GLOB (test code=AGRR) 0.9 1.0-2.6 ALK PHOS (test code=35A) 104 IU/L 42-121 AST (test code=30A) 9 IU/L <=42 ALT (test code=31A) 22 IU/L <=78 [id number] 19:27:00 Test Item Value Reference Range Comments SALICYLATE (test code=94B) 2.1 mg/dL 2.8-20.0 XR CHEST 1 VIEW [id number] 19:22:30CHEST RADIOGRAPH: LOCATION: [id number]: Chest pain.COMPARISON: None.TECHNIQUE: Single portable APradiograph of the chest.FINDINGS:No focal airspace consolidation or pneumothorax is visualized. Thecardiomediastinal silhouette is normal.IMPRESSION :No acute abnormality in the chest.URINALYSIS WITH [id number] 19:20:00 Test Item Value Reference Range Comments COLOR (test code=COLU) YELLOW YELLOW CLARITY (test code=CLA) HAZY CLEAR GLUCOSE UR (test code=UA GLUCOSE) NEGATIVE NEGATIVE BILI UR (test code=BILE) NEGATIVE NEGATIVE KETONES UR (test code=RICAROD) TRACE NEGATIVE SP GRAVITY (test code=SPGR) 1.023 1.005-1.030 PH UR (test code=PH) 6.0 4.5-8.0 PROTEIN UR (test code=PU) NEGATIVE NEGATIVE UROBIL UR (test code=UROQ) 1.0 EU/dL 0.2-1.0 NITRITE UR (test code=NITRITE) NEGATIVE NEGATIVE BLOOD UR (test code=UA BLOOD) NEGATIVE NEGATIVE LEUK ES UR (test code=LEUK) NEGATIVE NEGATIVE WBC UR (test code=UWBC) 2 /HPF 0-5 RBC UR (test code=URBC) 0 /HPF 0-2 EPITH UR (test code=UEPC) FEW /LPF FEW BACTERIA UR (test code=UBACT) NONE /HPF NONE CAST UR (test code=CAST) /LPF NONE CRYSTAL UR (test code=CRYU) / LPF NONE MUCUS UR (test code=MUC) / HPF NONE AMORPH UR (test code=HILDA) FEW / HPF NONE TRICH UR (test code=UTRICH) /HPF NONE YEAST UR (test code=UY) /HPF NONE SPERM UR (test code=USPERM) /HPF NONE DRUGS OF [id number] 19:19:00 Test Item Value Reference Range Comments DRUG SCRN (test code=HDOA) URINE DRUG SCREEN This is an unconfirmed screening result and should not be used for non-medical purposes CANNABINOD (test code=88C) Negative NEGATIVE AMPHETHETM (test code=84A) Negative NEGATIVE BENZODIAZP (test code=86A) Negative NEGATIVE BARBITURAT (test code=85A) Negative NEGATIVE OPIATES (test code=92B) Negative NEGATIVE COCAINE (test code=87A) Negative NEGATIVE PHENCYCLID (test code=66A) Negative NEGATIVE METHADONE (test code=64A) Negative NEGATIVE DOAH (test code=DOAH) URINE DRUG SCREEN Cut-off values are as follows: --- Cannabinoids 50 ng/mL Cocaine 300 ng/mL Amphetamines 1000 ng/mL Phencyclidine 25 ng/mL Benzodiazepines 200 ng.mL Methadone 300 ng/mL Barbiturates 200 ng/mL Opiates 2000 ng/mL CBC (INCLUDES AUTOMATED DIFFERENTIAL)2016-12-24 19:14:00 Test Item Value Reference Range Comments WBC (test code=WBC) 11.3 10\S\3/uL 4.5-11.0 RBC (test code=RBC) 4.47 10\S\6/uL 4.20-5.60 HGB (test code=HBG) 13.9 g/dL 12.0-15.5 HCT (test code=HCT) 41.5 % 35.0-44.0 MCV (test code=MCV) 92.8 fL 81.0-99.0 MCH (test code=MCH) 31.1 pg 27.0-31.0 MCHC (test code=MCHC) 33.5 g/dL 32.0-36.0 RDW (test code=RDW) 12.4 % 11.5-14.5 PLT (test code=PLT) 374 10\S\3/uL 130-400 MPV (test code=MPV) 10.7 fL 9.4-12.4 NEUTROP # (test code=NE#) 5.9 10\S\3/uL 1.6-8.0 LYMPH # (test code=LY#) 4.5 10\S\3/uL 1.1-3.5 MONOCYTE # (test code=MO#) 0.6 10\S\3/uL 0.0-1.1 EOSINOPH # (test code=EO#) 0.2 10\S\3/uL 0.0-0.7 BASOPHIL # (test code=BA#) 0.1 10\S\3/uL 0.0-0.3 IG # (test code=IG#) 0.04 10\S\3/uL 0.00-0.06 NRBC # (test code=NRBC#) 0.00 10\S\3/uL 0.00-0.01 NEUTROPH % (test code=NE%) 52.1 % 35.0-73.0 LYMPH % (test code=LY%) 39.7 % 20.0-55.0 MONO % (test code=MO%) 5.4 % 2.5-10.0 EOSINOPH % (test code=EO%) 2.0 % 0.0-5.0 BASOPHIL % (test code=BA%) 0.4 % 0.0-2.0 IG % (test code=IG%) 0.4 % 0.0-0.8 NRBC% (test code=NRBC%) 0.0 % 0.0-0.2 MANDIFF (test code=MDIFF) NO NO RBC MORPH (test code=RBCMOR) NORMAL
--- OUTSIDE RECORDS SUMMARY | 2019-07-14 05:22 | XMS REPORT ---
:1955 Author Organization [employer] Care Team Providers Name Role Phone GreeneDallas Provider Role Unavailable Allergies No Known Allergies Problems Problem Type Condition Code Onset Dates Condition Status Problem Primary osteoarthritis of right knee M17.11 Active Problem GERD without esophagitis K21.9 Active Problem Primary osteoarthritis of left knee M17.12 Active Problem Adult BMI 38.0-38.9 kg/sq m Z68.38 Active Problem HTN, goal below 130/80 I10 Active Problem Hypothyroidism, unspecified type E03.9 Active Problem Seasonal allergies J30.2 Active Problem Mixed hyperlipidemia E78.2 Active Problem Uncontrolled type 2 diabetes E11.65 Active mellitus with hyperglycemia Problem Depression with anxiety F41.8 Active Medications No Known Medications Results No Known Results Summary Purpose [employer] Submission
== END 2019-07-11 13:24 | disposition home or self-care (01) ==
LOC: ER 11:23
DX: S91.331A Puncture wound without foreign body, right foot, initial encounter (principal); W45.0XXA Nail entering through skin, initial encounter; Y93.01 Activity, walking, marching and hiking; Y92.89 Other specified places as the place of occurrence of the external cause; I10 Essential (primary) hypertension; E11.9 Type 2 diabetes mellitus without complications; E78.00 Pure hypercholesterolemia, unspecified; F32.9 Major depressive disorder, single episode, unspecified; Z23 Encounter for immunization; Z72.0 Tobacco use; Z91.012 Allergy to eggs; Z91.018 Allergy to other foods
CPT/HCPCS: 90471; 90714; 99284

== ENCOUNTER 2020-03-18 11:54 | Observation (INO) | payer OTHER ==
--- OUTSIDE RECORDS SUMMARY | 2020-03-18 11:57 | XMS REPORT | Continuity of Care Document ---
:1955 Author Organization [facility] t Address [address] [place] [address] Care Team Providers Name Role Phone Ava Soni MD Primary Care Physician FAUSTOLOR, MR MONDRAGON Admitting Clinician Unavailable Problems Condition Condition Condition Status Onset Resolution Last Treating Co mments Source Name Details Category Date Date Treatment Clinician Date Bipolar Bipolar Disease Active 2016-09 [place] disorder, disorder, 0-17 Meth zachary current current 00:00: st episode episode 00 mixed, mixed, unspecifie unspecifie d d Depression Depression Disease Active 2016-09 [place] 0-16 Methodi 00:00: st 00 Type 2 Type 2 Disease Active 2015-09 [place] diabetes diabetes 09-23 Method i mellitus mellitus 00:00: st without without 00 complicati complicati on, on, without without long-term long-term current current use of use of insulin insulin Essential Essential Disease Active 2015-09 John ston hypertensi hypertensi 09-23 Me thodi on on 00:00: st 00 Pure Pure Disease Active 2015-09 [place] hyperchole hyperchole 09-23 Me thodi sterolemia sterolemia 00:00: st 00 Vitamin D Vitamin D Disease Active 2015-09 John ston deficiency deficiency 09-23 Me thodi 00:00: st 00 Muscle Muscle Disease Active 2015-09 [place] spasm spasm 09-23 Methodi 00:00: st 00 Obesity Obesity Disease Active 2015-09 [place] 09-23 Methodi 00:00: st 00 Bipolar Bipolar Disease Active 2015-09 [place] affective affective 09-23 Meth zachary disorder disorder 00:00: st in in 00 remission remission Current Current Disease Active 2015-09 [place] tobacco tobacco 09-23 Methodi use use 00:00: st 00 Primary Primary Problem Active [facility] osteoarthr osteoarthr Estefanía kes - itis of itis of Memoria left knee left knee l [facility] ent Clinics Primary Primary Problem Active [facility] osteoarthr osteoarthr Estefanía kes - itis of itis of Memoria right knee right knee l [facility] ent Clinics Seasonal Seasonal Problem Active [facility] t allergies allergies Luke s - Memoria l [facility] ent Clinics Mixed Mixed Problem Active [facility] hyperlipid hyperlipid Estefanía kes - emia emia [facility] l [facility]ics Depression Depression Problem Active C HI [facility] with with [facility] - anxiety anxiety [facility] l [facility]ics HTN, goal HTN, goal Problem Active [facility] below below [facility] 130[facility]80 130/[facility] Uncontroll Uncontroll Problem Active C HI [facility] ed type 2 ed type 2 Luke s - diabetes diabetes Memori a mellitus mellitus l with with [facility] hyperglyce hyperglyce en t [facility] Clinics GERD GERD Problem Active [facility] without without Lukes - esophagiti esophagiti Me moria s s l [facility] ent Clinics Adult BMI Adult BMI Problem Active [facility] 38.0-38.9 38.0-38.9 Luke s - kg/sq m kg/sq m Memoria l [facility] ent Clinics Hypothyroi Hypothyroi Problem Active C HI [facility] dism, dism, Lukes - unspecifie unspecifie Me moria d type d type l [facility] ent [facility] Medicare Medicare Diagnosis Active [facility] annual annual [facility] - wellness wellness Memori a visit, visit, l subsequent subsequent [facility] Allergies, Adverse Reactions, Alerts Allergy Allergy Status Severity Reaction(s) Onset Inactive Treating Comm ents Source Name Type Date Date Clinician Eggshell Propensi Active Swelling 2015-09 [place] Membrane ty to 09-09 Methodi adverse 00:00: st reaction 00 s to drug eggs Adverse Active Info Not [facility] Reaction Available [facility] - Memoria [facility] ent Clinics Family History Family Member Diagnosis Comments Start Date Stop Date Source Natural brother No Known Problems Rusty cheung Anglican Cousin No Known Problems Ryley Anglican Natural father Diabetes Ryley Anglican Maternal aunt No Known Problems Hous abdelrahman Anglican Maternal No Known Problems Hedrick grandfather Anglican Maternal No Known Problems Ryley grandmother Anglican Maternal uncle No Known Problems John negrete Anglican Natural mother No Known Problems John negrete Anglican Paternal aunt No Known Problems [place] Anglican Paternal No Known Problems Hedrick grandfather Anglican Paternal No Known Problems Hedrick grandmother Anglican Paternal uncle No Known Problems John ramiresrenny Anglican Natural sister No Known Problems Johnrahul ramiresrenny Anglican Family member ADD / ADHD [place] Anglican Family member Alcohol abuse Hedrick Anglican Family member Anxiety disorder [place] Family member Bipolar disorder [place] Family member Dementia Hedrick Anglican Family member Depression Hedrick Anglican Family member Drug abuse [place] Anglican Family member OCD [place] Anglican Family member Paranoid behavior [place] Anglican Family member Schizophrenia Hedrick Anglican Family member Seizures Hedrick Anglican Family member Self-Injurious [place] Behavior Anglican Family member Suicide Attempts [place] Anglican Social History Social Habit Start Date Stop Date Quantity Comments Source History of tobacco 2003-07-10 Current every John penelope Anglican use 00:00:00 day smoker Sex Assigned At [facility] ethodist Cigarettes smoked 2017-06-18 2017-06-18 [place] Anglican current (pack per 00:00:00 00:00:00 day) - Reported Alcohol intake 2017-06-18 2017-06-18 Current [facility] thodist 00:00:00 00:00:00 non-drinker of alcohol (finding) Smoking Status Start Date Stop Date Source Current every day smoker 2017-06-18 00:00:00 John Costello Medications Ordered Filled Start Stop Current Ordering Indication Dosage Frequency Signature Comments Components Source Medication Medication Date Date Medication? Clinician (SIG) Name Name Omeprazole Omeprazole Yes [place] [address] 2-25 [place] [facility] - 00:00: Memoria 00 [facility] ent Clinics Lisinopril Lisinopril 2017-09 Yes [place] [address] 1-27 [place] [facility] - 00:00: Memoria 00 [facility] ent [facility] metFORMIN 2016-09 Yes 500mg Q.5D Take 1 [place] (GLUCOPHAGE 1-29 tablet Method i ) 500 mg 00:00: ([address] tablet 00 total) by mouth 2 (two) times a day. atorvastati 2016-09 Yes 20mg QD Take 20 mg Hedrick n (LIPITOR) 0-20 by mouth Meth zachary 20 MG 14:28: daily. st tablet 13 Default OP ins hydroCHLORO 2016-09 Yes 25mg QD Take 25 mg [place] thiazide 0-20 by mouth Methodi (HYDRODIURI 14:28: daily. st L) 25 MG 13 tablet lisinopril 2016-09 Yes 2.5mg QD Take 2.5 [place] (PRINIVIL,Z 0-20 mg by Methodi ESTRIL) 2.5 14:28: mouth st mg tablet 13 daily. topiramate 2016-09 Yes 25mg Q.5D Take 25 mg [place] (TOPAMAX) 0-20 by mouth 2 Meth zachary 25 MG 14:28: (two) st tablet 13 times a day. levothyroxi 2016-09 Yes 50ug QD Take 50 John ston ne 0-20 mcg by Methodi (SYNTHROID, 14:28: mouth st LEVOXYL) 50 13 every mcg tablet morning. Lipitor Lipitor Yes [place] [address] [facility] [place] [facility] - [facility]oria l [facility] Clinics Metformin Metformin Yes [place] [address] [facility] HCl HCl [place] with a [facility]ukes - meal Memoria l [facility] Clinics Topiramate Topiramate Yes [place] [address] [facility] [place] [facility] l [facility]ics Prazosin Prazosin Yes [place] [address] HCl HCl [place] at bedtime [facility] - [facility] l [facility]ics Escitalopra Escitalopra Yes [place] [address] [facility] m Oxalate m Oxalate [place] Luke s - Memoria l [facility] Clinics Fluzone Fluzone Yes [place] TO BE [facility] Quadrivalen Quadrivalen [place] ADMINISTER Lukes - t t ED BY [facility] PHARMACIST l FOR Outpati IMMUNIZATI ent ON Clinics Levothyroxi Levothyroxi Yes [place] [address] [facility] ne Sodium ne Sodium [place] on an Segun es - empty Memoria stomach in l the Outpati morning ent Clinics Gabapentin Gabapentin Yes [place] [address] [facility] [place] [facility] Clinics Lexapro Lexapro Yes [place] 0.[address] [place] [facility] Clinics Immunizations Ordered Immunization Filled Immunization Date Status Commen ts Source Name Name Vickey Hurd 2018-10-[address] [facility] - 00:[facility]00 [facility]patient [facility] FLUCELVAX QUAD PF 2017-06-18 Completed [place] 00:00:00 [facility] Pneumococcal 2016-07-10 Completed [place] Polysaccharide 00:00:00 Anglican FLUZONE QUAD PF 2016-07-10 Completed [place] 00:00:00 [facility] Procedures This patient has no known procedures. Plan of Care Planned Activity Planned Date Details Comments Source Future Scheduled 2020-04-03 INFLUENZA VACCINE [place] Anglican Test 00:00:00 [code = INFLUENZA VACCINE] Future Scheduled 2018-09-25 DIABETIC RETINAL EYE John ston Anglican Test 00:00:00 EXAM [code = DIABETIC RETINAL EYE EXAM] Future Scheduled 2017-07-14 BREAST CANCER Hedrick Me thodist Test 00:00:00 SCREENING [code = BREAST CANCER SCREENING] Future Scheduled 2017-07-12 URINE MICROALBUMIN [place] Anglican Test 00:00:00 [code = URINE MICROALBUMIN] Future Scheduled 2017-07-10 DIABETIC FOOT EXAM [place] Anglican Test 00:00:00 [code = DIABETIC FOOT EXAM] Future Scheduled 2007 COLONOSCOPY SCREENING [place] Anglican Test 00:00:00 [code = COLONOSCOPY SCREENING] Future Scheduled 2007 SHINGLES VACCINES (#1) [place] Anglican Test 00:00:00 [code = SHINGLES VACCINES (#1)] Encounters Start End Encounter Admission Attending Care Care Encounter Source Date/Time Date/Time Type Type Clinicians Facility Department ID 2020-02-12 2020-02-12 [facility] [id number] [address] 10:00:00 10:00:00 [employer] [facility]2 [facility] ent Clinics 2020-02-12 2020-02-12 [facility] [id number] 09:30:00 09:30:[address] [facility] Medicine [facility] ent Clinics 2020-02-03 2020-02-03 [facility] [id number] 09:15:00 09:15:00 t Bone Bone and [facility] - and Joint Joint [facility] a Clinic of [facility] ent Clinics 2020-01-27 2020-01-27 [facility] [id number] 10:46:00 10:46:[address] [facility] Medicine [facility] ent Clinics 2020-01-20 2020-01-20 [facility] [id number] 09:00:00 09:00:00 t Bone Bone and [facility] - and Joint Joint [facility] a Clinic of [facility] ent Clinics 2019-11-05 2019-11-05 [facility] [id number] 14:30:00 14:30:00 t [place] Dine perfect s - Drive [facility] Medicine Outpati ent Clinics 2019-08-06 2019-08-06 [facility] [id number] 14:00:00 14:00:00 t [place] perfect s - Drive [facility] Medicine Outpati ent Clinics 2019-07-29 2019-07-29 [facility] [id number] 09:26:00 09:26:00 t [place] [employer] perfect s - [employer] [facility] Medicine Outpati ent Clinics 2019-05-21 2019-05-21 [facility] [id number] 14:17:00 14:17:00 t [place] D[place] perfect s - [employer] [facility] Medicine Outpati ent Clinics 2019-05-20 2019-05-20 [facility] [id number] 11:52:00 11:52:00 t [place] [employer] perfect s - [employer] [facility] Medicine Outpati ent Clinics 2019-05-16 2019-05-16 [facility] [id number] 13:39:00 13:39:00 t [place] [employer] perfect s - [employer] [facility] Medicine Outpati ent Clinics 2019-05-07 2019-05-07 [facility] [id number] 13:15:00 13:15:00 t [place] [employer] perfect s - [employer] [facility] Medicine Outpati ent Clinics 2018-10-28 2018-10-28 [facility] [id number] 10:00:00 10:00:00 t [place] [employer] perfect s - [employer] [facility] Medicine Outpati ent Clinics 2018-09-12 2018-09-12 [facility] [id number] 14:15:00 14:15:00 t [place] Dine perfect s - Drive [facility] Medicine Outpati ent Clinics Results Test Description Test Time Test Comments Results Result Comments Source ACETAMINOPHEN 2016-12-24 19:47:00 Test Item Value Reference Range Interpretation Comme nts ACETAMINPH (test code = 94M) <2.0 ug/mL 10.0-30.0 L ALCOHOL BLOOD (ETOH)2016-12-24 19:43:00 Test Item Value Reference Range Interpretation Comments ALCOHOL (test code = <10 mg/dL <=10 56A) Ref Range Change (test Please note the code = REF RANGE) change in reference range COMPREHENSIVE METABOLIC [id number] 19:36:00 Test Item Value Reference Range Interpretation Comments GLUCOSE (test code = 06D) 147 mg/dL 75-100 H SODIUM (test code = 01A) 141 mmol/L 136-145 POTASSIUM (test code = 01B) 4.1 mmol/L 3.6-5.1 CHLORIDE (test code = 04A) 110 mmol/L 98-107 H CO2 (test code = 02A) 25 mmol/L 22-32 ANION GAP (test code = ANG) 10.1 mmol/L BUN (test code = 05D) 14 mg/dL 7-18 CREATININE (test code = 03E) 0.7 mg/dL 0.4-1.1 BUN/CREA R (test code = BCR) 20 12-20 CALCIUM (test code = 09D) 8.7 mg/dL 8.3-9.5 BILI TOTAL (test code = 11A) 0.3 mg/dL 0.2-1.0 PROTEIN (test code = 07D) 7.8 g/dL 6.4-8.2 ALBUMIN (test code = 08D) 3.6 g/dL 3.5-4.8 GLOBULIN (test code = GLB) 4.2 g/dL 1.5-3.8 H ALB/GLOB (test code = AGRR) 0.9 1.0-2.6 L ALK PHOS (test code = 35A) 104 IU/L 42-121 AST (test code = 30A) 9 IU/L <=42 ALT (test code = 31A) 22 IU/L <=78 [id number] 19:27:00 Test Item Value Reference Range Interpretation Comments SALICYLATE (test code = 94B) 2.1 mg/dL 2.8-20.0 L XR CHEST 1 VIEW [id number] 19:22:30CHEST RADIOGRAPH: LOCATION: [id number]: Chest pain.COMPARISON: None.TECHNIQUE: Single portable AP radiograph of the chest.FINDINGS:No focal airspace consolidation or pneumothorax is visualized. Thecardiomediastinal silhouette is normal.IMPRESSION:No acute abnormality in the chest.URINALYSIS WITH [id number] 19:20:00 Test Item Value Reference Range Interpretation Comments COLOR (test code = COLU) YELLOW YELLOW CLARITY (test code = CLA) HAZY CLEAR A GLUCOSE UR (test code = UA GLUCOSE) NEGATIVE NEGATIVE BILI UR (test code = BILE) NEGATIVE NEGATIVE KETONES UR (test code = RICARDO) TRACE NEGATIVE A SP GRAVITY (test code = SPGR) 1.023 1.005-1.030 PH UR (test code = PH) 6.0 4.5-8.0 PROTEIN UR (test code = PU) NEGATIVE NEGATIVE UROBIL UR (test code = UROQ) 1.0 EU/dL 0.2-1.0 NITRITE UR (test code = NITRITE) NEGATIVE NEGATIVE BLOOD UR (test code = UA BLOOD) NEGATIVE NEGATIVE LEUK ES UR (test code = LEUK) NEGATIVE NEGATIVE WBC UR (test code = UWBC) 2 /HPF 0-5 RBC UR (test code = URBC) 0 /HPF 0-2 EPITH UR (test code = UEPC) FEW /LPF FEW BACTERIA UR (test code = UBACT) NONE /HPF NONE CAST UR (test code = CAST) /LPF NONE CRYSTAL UR (test code = CRYU) / LPF NONE MUCUS UR (test code = MUC) / HPF NONE AMORPH UR (test code = HILDA) FEW / HPF NONE A TRICH UR (test code = UTRICH) /HPF NONE YEAST UR (test code = UY) /HPF NONE SPERM UR (test code = USPERM) /HPF NONE DRUGS OF [id number] 19:19:00 Test Item Value Reference Range Interpretation Comments DRUG SCRN (test code URINE DRUG SCREEN = HDOA) This is an unconfirmed screening result and should not be used for non-medical purposes CANNABINOD (test Negative NEGATIVE code = 88C) AMPHETHETM (test Negative NEGATIVE code = 84A) BENZODIAZP (test Negative NEGATIVE code = 86A) BARBITURAT (test Negative NEGATIVE code = 85A) OPIATES (test code = Negative NEGATIVE 92B) COCAINE (test code = Negative NEGATIVE 87A) PHENCYCLID (test Negative NEGATIVE code = 66A) METHADONE (test code Negative NEGATIVE = 64A) DOAH (test code = DOAH) URINE DRUG SCREEN Cut-off values are as follows: Cannabinoids 50 ng/mL Cocaine 300 ng/mL Amphetamines 1000 ng/mL Phencyclidine 25 ng/mL Benzodiazepines 200 ng.mL Methadone 300 ng/mL Barbiturates 200 ng/mL Opiates 2000 ng/mL CBC (INCLUDES AUTOMATED DIFFERENTIAL)2016-12-24 19:14:00 Test Item Value Reference Range Interpretation Comments WBC (test code = WBC) 11.3 10\S\3/uL 4.5-11.0 H RBC (test code = RBC) 4.47 10\S\6/uL 4.20-5.60 HGB (test code = HBG) 13.9 g/dL 12.0-15.5 HCT (test code = HCT) 41.5 % 35.0-44.0 MCV (test code = MCV) 92.8 fL 81.0-99.0 MCH (test code = MCH) 31.1 pg 27.0-31.0 H MCHC (test code = MCHC) 33.5 g/dL 32.0-36.0 RDW (test code = RDW) 12.4 % 11.5-14.5 PLT (test code = PLT) 374 10\S\3/uL 130-400 MPV (test code = MPV) 10.7 fL 9.4-12.4 NEUTROP # (test code = NE#) 5.9 10\S\3/uL 1.6-8.0 LYMPH # (test code = LY#) 4.5 10\S\3/uL 1.1-3.5 H MONOCYTE # (test code = MO#) 0.6 10\S\3/uL 0.0-1.1 EOSINOPH # (test code = EO#) 0.2 10\S\3/uL 0.0-0.7 BASOPHIL # (test code = BA#) 0.1 10\S\3/uL 0.0-0.3 IG # (test code = IG#) 0.04 10\S\3/uL 0.00-0.06 NRBC # (test code = NRBC#) 0.00 10\S\3/uL 0.00-0.01 NEUTROPH % (test code = NE%) 52.1 % 35.0-73.0 LYMPH % (test code = LY%) 39.7 % 20.0-55.0 MONO % (test code = MO%) 5.4 % 2.5-10.0 EOSINOPH % (test code = EO%) 2.0 % 0.0-5.0 BASOPHIL % (test code = BA%) 0.4 % 0.0-2.0 IG % (test code = IG%) 0.4 % 0.0-0.8 NRBC% (test code = NRBC%) 0.0 % 0.0-0.2 MANDIFF (test code = MDIFF) NO NO RBC MORPH (test code = RBCMOR) NORMAL
--- OUTSIDE RECORDS SUMMARY | 2020-03-18 11:57 | XMS REPORT ---
:1955 Author Organization [employer] Care Team Providers Name Role Phone [place] Provider Role Unavailable Allergies No Known Allergies Problems Problem Type Condition Code Onset Dates Condition Statu s Problem Primary osteoarthritis of right knee M17.11 Active Problem GERD without esophagitis K21.9 Act madiha Problem Primary osteoarthritis of left knee M17.12 Active Assessment Screening mammogram, encounter for Z12.31 Active Problem Adult BMI 38.0-38.9 kg/sq m Z68.38 Active Problem HTN, goal below 130/80 I10 Activ e Problem Hypothyroidism, unspecified type E03.9 Active Problem Seasonal allergies J30.2 Active Problem Mixed hyperlipidemia E78.2 Active Problem Uncontrolled type 2 diabetes E11.65 Active mellitus with hyperglycemia Problem Depression with anxiety F41.8 Acti ve Medications No Known Medications Results No Known Results Summary Purpose [employer]ClinicalWorks Submission
--- OUTSIDE RECORDS SUMMARY | 2020-03-18 11:57 | XMS REPORT ---
:1955 Author Organization [employer] Care Team Providers Name Role Phone FreitasStepan Provider Role Unavailable Allergies, Adverse Reactions, Alerts Substance Reaction Event Type eggs Info Not Available Non Drug Allergy Problems Problem Type Condition Code Onset Dates Condition Statu s Problem Primary osteoarthritis of right M17.11 Active knee Problem GERD without esophagitis K21.9 Act madiha Problem Primary osteoarthritis of left knee M17.12 Active Assessment Pain in joint of right knee M25.561 Active Assessment Pain in joint of left knee M25.562 A ctive Assessment Primary osteoarthritis of right M17.11 Active knee Assessment Primary osteoarthritis of left knee M17.12 Active Problem Adult BMI 38.0-38.9 kg/sq m Z68.38 Active Problem HTN, goal below 130/80 I10 Activ e Problem Hypothyroidism, unspecified type E03.9 Active Problem Seasonal allergies J30.2 Active Problem Mixed hyperlipidemia E78.2 Active Problem Uncontrolled type 2 diabetes E11.65 Active mellitus with hyperglycemia Problem Depression with anxiety F41.8 Acti ve Medications Medication Code Code Instructions Start End Status Dosage System Date Date Escitalopram [facility] 36122891181 10 MG Orally Active 1 tablet Oxalate Once a day Lipitor ND 99848661752 40 MG Orally Active 1 table t Once a day Fluzone [facility] 35882225582 0.5 ML Active TO BE Quadrivalent Intramuscular ADMIN ISTERED BY PHARMACIST FOR IMMUNIZATION Topiramate ND 56411904158 100 MG Orally Active 1 t ablet Once a day Omeprazole ND 83775517077 40 MG Orally Active 1 ca psule Once a day Prazosin HCl ND 34713585885 1 MG Orally Active 1 c apsule at Once a day bedtime Lisinopril ND 78304294166 10 MG Orally Active 1 ta blet Once a day Metformin HCl [facility] 74306925073 1000 MG Orally Active 1 tablet with Twice a day a meal Results No Known Results Summary Purpose eClinicalWorks Submission
--- OUTSIDE RECORDS SUMMARY | 2020-03-18 11:57 | XMS REPORT | Clinical Summary ---
:1955 Author Organization [facility] Address [address] [place] [address] Care Team Providers Name Role Phone Ava Soni MD Primary Care Provider Allergies Active Allergy Reactions Severity Noted Date Comments Eggshell Membrane Swelling 07/10/2016 Medications Medication Sig Dispensed Refills Start Date End Date Status atorvastatin (LIPITOR) 20 Take 20 mg by 0 Active MG tablet mouth daily. Default OP ins hydroCHLOROthiazide Take 25 mg by 0 Active (HYDRODIURIL) 25 MG tablet mouth daily. lisinopril Take 2.5 mg by 0 Acti ve (PRINIVIL,ZESTRIL) 2.5 mg mouth daily. tablet topiramate (TOPAMAX) 25 MG Take 25 mg by 0 Active tablet mouth 2 (two) times a day. levothyroxine (SYNTHROID, Take 50 mcg by 0 Active LEVOXYL) 50 mcg tablet mouth every morning. metFORMIN (GLUCOPHAGE) 500 Take 1 tablet 60 tablet 0 7 Active mg tablet (500 mg total) by mouth 2 (two) times a day. Active Problems Problem Noted Date Bipolar disorder, current episode mixed, unspecified 1 Depression 06/18/2017 Type 2 diabetes mellitus without complication, without long-term current 07/24/2016 use of insulin Essential hypertension 07/24/2016 Pure hypercholesterolemia 07/24/2016 Vitamin D deficiency 07/24/2016 Muscle spasm 07/24/2016 Obesity 07/24/2016 Bipolar affective disorder in remission 07/24/2016 Current tobacco use 07/24/2016 Immunizations Name Administration Dates Next Due FLUCELVAX QUAD PF 06/18/2017 FLUZONE QUAD PF 07/10/2016 Pneumococcal Polysaccharide 07/10/2016 Tdap 07/24/2016 (Deferred: Patient decision) Family History Medical History Relation Name Comments No Known Problems Brother No Known Problems Cousin Diabetes Father No Known Problems Maternal Aunt No Known Problems Maternal Grandfather No Known Problems Maternal Grandmother No Known Problems Maternal Uncle No Known Problems Mother No Known Problems Paternal Aunt No Known Problems Paternal Grandfather No Known Problems Paternal Grandmother No Known Problems Paternal Uncle No Known Problems Sister ADD / ADHD Neg Hx Alcohol abuse Neg Hx Anxiety disorder Neg Hx Bipolar disorder Neg Hx Dementia Neg Hx Depression Neg Hx Drug abuse Neg Hx OCD Neg Hx Paranoid behavior Neg Hx Schizophrenia Neg Hx Seizures Neg Hx Self-Injurious Behavior Neg Hx Suicide Attempts Neg Hx Relation Name Status Comments Brother Cousin Father Maternal Aunt Maternal Grandfather Maternal Grandmother Maternal Uncle Mother Paternal Aunt Paternal Grandfather Paternal Grandmother Paternal Uncle Sister Social History Tobacco Use Types Packs/Day Years Used Date Current Every Day Smoker Cigarettes 0.25 Sta rted: 07/10/2003 Alcohol Use Drinks/Week oz/Week Comments No Sex Assigned at Date Recorded Not on file Job Start Date Occupation Industry Not on file Not on file Not on file Travel History Travel Start Travel End No recent travel history available. Last Filed Vital Signs Not on file Plan of Treatment Health Maintenance Due Date Last Done Comments COLONOSCOPY SCREENING 2007 SHINGLES VACCINES (#1) 2007 DIABETIC FOOT EXAM 07/10/2017 07/10/2016, 07/10/2016, 07/10, Additional history exists URINE MICROALBUMIN 07/12/2017 07/12/2016, 07/10/2016 BREAST CANCER SCREENING 07/14/2017 07/14/2016, 07/10/2016 DIABETIC RETINAL EYE EXAM 09/25/2018 09/25/2016, 09/25/2016 , 09/25/2016, Additional history exists INFLUENZA VACCINE 04/03/2020 06/18/2017, 07/10/2016, 2015 Results Not on fileafter 03/18/2019 Advance Directives For more information, please contact: [phone] Type Date 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
--- OUTSIDE RECORDS SUMMARY | 2020-03-18 11:57 | XMS REPORT ---
:1955 [facility] Team Providers Name Role Phone Stepan Freitas Provider Role Unavailable Allergies, Adverse Reactions, Alerts [...] Problem Depression with anxiety F41.8 Acti ve Assessment Primary osteoarthritis of right M17.11 Active knee Assessment Pain in joint of left knee M25.562 A ctive Assessment Trochanteric bursitis of left hip M70.62 Active Assessment Pain in joint of right knee M25.561 Active Assessment Primary osteoarthritis of left knee M17.12 Active Medications Medication Code Code Instructions Start End Status Dosage System Date Date Levothyroxine [facility] 08138917559 50 MCG Orally Active 1 tablet on an Sodium Once a day empty stomach in the morning Lexapro [facility] 21115562426 20 MG Orally Active 0.5 tab let Once a day Escitalopram ND 76047832527 10 MG Orally Active 1 tablet Oxalate Once a day Levothyroxine ND 52613642983 25 MCG Orally Aug 06, Active 1 tablet in Sodium Once a day 2018 the morning o n an empty stomach Lisinopril ND 58951418273 10 MG Orally Active 1 ta blet Once a day Omeprazole ND 14597428273 40 MG Orally Active 1 ca psule Once a day Topiramate [facility] 88162252983 100 MG Orally Active 1 t ablet Once a day Prazosin HCl ND 87865258660 1 MG Orally Active 1 c apsule at Once a day bedtime Fluzone [facility] 28335041885 0.5 ML Active TO BE Quadrivalent Intramuscular ADMIN ISTERED BY PHARMACIST FOR IMMUNIZATION Metformin HCl [facility] 37537759396 1000 MG Orally Active 1 tablet with Twice a day a meal Lipitor [facility] 39774546991 40 MG Orally Active 1 table t Once a day Results No Known Results Summary Purpose eClinicalWorks Submission
--- OUTSIDE RECORDS SUMMARY | 2020-03-18 11:58 | XMS REPORT ---
:1955 Author Organization eClinicalWorks Care Team Providers Name Role Phone [place] Provider Role Unavailable Allergies, Adverse Reactions, Alerts Substance Reaction Event Type eggs Info Not Available Non Drug Allergy Problems Problem Type Condition Code Onset Dates Condition Statu s Problem Primary osteoarthritis of right knee M17.11 Active Problem GERD without esophagitis K21.9 Act madiha Problem Primary osteoarthritis of left knee M17.12 Active Assessment Medicare annual wellness visit, Z00.00 Active subsequent Problem Adult BMI 38.0-38.9 kg/sq m Z68.38 Active Problem HTN, goal below 130/80 I10 Activ e Problem Hypothyroidism, unspecified type E03.9 Active Problem Seasonal allergies J30.2 Active Problem Mixed hyperlipidemia E78.2 Active Problem Uncontrolled type 2 diabetes E11.65 Active mellitus with hyperglycemia Problem Depression with anxiety F41.8 Acti ve Medications Medication Code Code Instructions Start End Status Dosage System Date Date Lexapro [facility] 58633010271 20 MG Orally Active 0.5 tab let Once a day Omeprazole ND 67334309422 40 MG Orally Active 1 ca psule Once a day Topiramate [facility] 10810696112 100 MG Orally Active 1 t ablet Once a day Escitalopram [facility] 96220274148 10 MG Orally Active 1 tablet Oxalate Once a day Lipitor ND 70008463085 40 MG Orally Active 1 table t Once a day Levothyroxine [facility] 77563372578 50 MCG Orally Active 1 tablet on an Sodium Once a day empty stomach in the morning Gabapentin ND 42986555210 300 MG Orally Active 1 c apsule Twice a day Fluzone [facility] 89430077859 0.5 ML Active TO BE Quadrivalent Intramuscular ADMIN ISTERED BY PHARMACIST FOR IMMUNIZATION Metformin HCl [facility] 06792587285 1000 MG Orally Active 1 tablet with Twice a day a meal Lisinopril ND 70781259134 10 MG Orally Active 1 ta blet Once a day Prazosin HCl [facility] 37500404008 1 MG Orally Active 1 c apsule at Once a day bedtime Results No Known Results Summary Purpose eClinicalWorks Submission
--- OUTSIDE RECORDS SUMMARY | 2020-03-18 11:58 | XMS REPORT ---
:1955 Author Organization eClinicalWorks Care Team Providers Name Role Phone Jc [place] Provider Role Unavailable Allergies, Adverse Reactions, Alerts Substance Reaction Event Type eggs Info Not Available Non Drug Allergy Problems Problem Type Condition Code Onset Dates Condition Statu s Problem Primary osteoarthritis of right knee M17.11 Active Problem GERD without esophagitis K21.9 Act madiha Problem Primary osteoarthritis of left knee M17.12 Active Problem Adult BMI 38.0-38.9 kg/sq m Z68.38 Active Assessment Neuropathic trigeminal sensory nerve G50.9 Active Problem HTN, goal below 130/80 I10 Activ e Assessment Status post fall Z91.81 Active Assessment Tobacco abuse, episodic Z72.0 Acti ve Problem Hypothyroidism, unspecified type E03.9 Active Problem Seasonal allergies J30.2 Active Problem Mixed hyperlipidemia E78.2 Active Problem Uncontrolled type 2 diabetes E11.65 Active mellitus with hyperglycemia Problem Depression with anxiety F41.8 Acti ve Assessment Depression with anxiety F41.8 Acti ve Assessment Primary osteoarthritis of right knee M17.11 Active Assessment Adult BMI 38.0-38.9 kg/sq m Z68.38 Active Assessment Seasonal allergies J30.2 Active Assessment Mixed hyperlipidemia E78.2 Active Assessment HTN, goal below 130/80 I10 Activ e Assessment GERD without esophagitis K21.9 Act madiha Assessment Uncontrolled type 2 diabetes E11.65 Active mellitus with hyperglycemia Assessment Noncompliance w/medication treatment Z91.14 Active due to intermit use of medication Assessment Hypothyroidism, unspecified type E03.9 Active Medications Medication Code Code Instructions Start End Status Dosage System Date Date Metformin HCl ND 93951435285 1000 MG Orally Active 1 tablet with Twice a day a meal Fluzone ND 55224825028 0.5 ML Active TO BE Quadrivalent Intramuscular ADMIN ISTERED BY PHARMACIST FOR IMMUNIZATION Lisinopril ND 05049280745 10 MG Orally Active 1 ta blet Once a day Levothyroxine ND 97785154896 50 MCG Orally Active 1 tablet on an Sodium Once a day empty stomach in the morning Escitalopram [facility] 81948557166 10 MG Orally Active 1 tablet Oxalate Once a day Gabapentin [facility] 60153785726 300 MG Orally Active 1 c apsule Twice a day Lipitor [facility] 28186217333 40 MG Orally Active 1 table t Once a day Lexapro [facility] 25376269105 20 MG Orally Active 0.5 tab let Once a day Omeprazole [facility] 21265382381 40 MG Orally Active 1 ca psule Once a day Prazosin HCl [facility] 82663512820 1 MG Orally Active 1 c apsule at Once a day bedtime Topiramate [facility] 37896342034 100 MG Orally Active 1 t ablet Once a day Results No Known Results Summary Purpose eClinicalWorks Submission
[2020-03-18] MEDS ORDERED: MORPHINE 4 MG/ML SYR ONE (12:33)
[2020-03-18] MEDS ORDERED: ONDANSETRON 4 MG/2 ML VIAL ONE ×2 (12:33→17:03)
[2020-03-18 12:54] LABS: Absolute Lymphocytes (CBC) 1.5 K/uL (0.7-4.9); Basophils % 0.7 % (0-1.3); Hematocrit 44.4 % (36.0-45.0); Lymphocytes % 14.6 % (15.3-44.8); MPV 9.5 fL (7.6-11.3); RBC Red Blood Cell Count 4.66 M/uL (3.86-4.86)
[2020-03-18 12:58] LABS: Protime INR 1.03
[2020-03-18 13:16] LABS: ALT/SGPT 21 U/L (12-78); AST/SGOT 9 U/L (15-37); Albumin 3.8 g/dL (3.4-5.0); Alkaline Phosphatase 101 U/L (45-117); BUN Blood Urea Nitrogen 17 mg/dL (7-18); Bicarbonate 22 mmol/L (21-32); Bilirubin Direct < 0.1 mg/dL (0-0.2); Bilirubin Total 0.4 mg/dL (0.2-1.0); Glucose Level 150 mg/dL (74-106); Lipase 167 U/L (73-393); Magnesium 2.2 mg/dL (1.8-2.4); NT PRO-BNP 87 pg/mL (<125); Potassium 3.9 mmol/L (3.5-5.1); Protein, Total 8.2 g/dL (6.4-8.2); Sodium Level 137 mmol/L (136-145); Troponin (Emerg Dept Use Only) < 0.02 ng/mL (0.0-0.045)
--- NOTE | 2020-03-18 13:16 | RAD REPORT ---
EXAM DESCRIPTION: CT - Chest Abdomen Pelvis W Cont - 03/18/2020 12:59 pm CLINICAL HISTORY: C18.7, C20 COMPARISON: 2011 CT abdomen TECHNIQUE: Computed axial tomography of the chest, abdomen and pelvis was obtained. 100 cc Isovue-30 0 was administered intravenously. Oral contrast was given All CT scans are performed using dose optimization technique as appropriate and may include automated exposure control or mA/KV adjustment according to patient size. FINDINGS: Mild subpleural interstitial lung opacities bilaterally. Calcified granuloma right lung No mediastinal or hilar lymphadenopathy A pleural effusion is not seen. A pericardial effusion is not noted. The liver, spleen, pancreas, adrenals and kidneys appear unremarkable. Normal appendix. There is no evidence of diverticulitis. Tiny umbilical hernia. Hysterectomy Mild gallbladder distention IMPRESSION: Mild bilateral subpleural interstitial lung opacities may indicate early idiopathic pulm onary fibrosis. Mild gallbladder distention
--- NOTE | 2020-03-18 13:23 | RAD REPORT ---
EXAM DESCRIPTION: US - Abdomen Exam Limited - 03/18/2020 12:57 pm CLINICAL HISTORY: Abdominal pain. COMPARISON: None. FINDINGS: The gallbladder wall is not thickened. A 2 centimeter echogenic structure in the region o f the gallbladder neck. Echogenic bowel surrounds the gallbladder. Gallbladder is mildly distended The biliary tree is normal caliber. IMPRESSION: The gallbladder is mildly distended 2 centimeter echogenic structure within the region the gallbladder neck likely a stone. Considerably less likely this represents adjacent bowel.
[2020-03-18] MEDS ORDERED: FENTANYL CITR 100 MCG/2 ML ONE ×2 (13:48→16:41)
--- NOTE | 2020-03-18 13:53 | EDPHYS ---
Physician Documentation [facility] Name: Lety Beach Age: 64 yrs Sex: Female : 1955 Arrival Date: 03/18/2020 Time: 11:56 Bed 14 Private MD: ED Physician Carlton Delgado HPI: 03/18 12:13 This 64 yrs old Female presents to ER via Ambulatory with complaints of jmm Abdominal Pain, Nausea/Vomiting. 12:13 The patient presents with abdominal pain. Onset: The symptoms/episode began/occurred jmm gradually, 3 week(s) ago. The symptoms radiate to Associated signs and symptoms: Pertinent positives: nausea and vomiting, chest pain, Pertinent negatives: fever. The symptoms are described as achy, sharp. This is a 64 year old female with a history of dm, hlp, htn that presents to the ED with complaints of epigastic pain which has been ongoing for the past few weeks. Patient states beginning last night she has had multiple episodes of vomiting with chest pain. . Historical: - Allergies: 12:10 EGG/POULTRY; ca1 - PMHx: 12:10 Depression; Diabetes - NIDDM; High Cholesterol; Hypertension; Thyroid problem; ca1 - PSHx: 12:10 Tubal ligation; Hysterectomy; ca1 - Immunization history:: Adult Immunizations up to date. - Social history:: Smoking status: Patient reports the use of cigarette tobacco products, 4-5 cig a day. ROS: 12:13 Constitutional: Negative for fever, chills, and weight loss, Cardiovascular: Negative jmm for chest pain, palpitations, and edema, Respiratory: Negative for shortness of breath, cough, wheezing, and pleuritic chest pain. 12:13 Abdomen/GI: Positive for abdominal pain, nausea and vomiting. 12:13 All other systems are negative. Exam: 12:13 Head/Face: atraumatic. Eyes: EOMI, no conjunctival erythema appreciated ENT: Moist jmm Mucus Membranes Neck: Trachea midline, Supple Chest/axilla: Normal chest wall appearance and motion. Cardiovascular: Regular rate and rhythm. No edema appreciated Respiratory: Normal respirations, no respiratory distress appreciated 12:13 Back: Normal ROM Skin: General appearance color normal MS/ Extremity: Moves all extremities, no obvious deformities appreciated, no edema noted to the lower extremities Neuro: Awake and alert, normal gait Psych: Behavior is normal, Mood is normal, Patient is cooperative and pleasant 12:13 Constitutional: The patient appears alert, awake, uncomfortable. 12:13 Abdomen/GI: Inspection: abdomen appears normal, Bowel sounds: normal, Palpation: moderate abdominal tenderness, in the epigastric area, right upper quadrant and left upper quadrant. Vital Signs: 12:06 BP 138 / 67; Pulse 64; Resp 19 S; Temp 97.6(TE); Pulse Ox 98% on R/A; Weight 93.44 kg ca1 (R); Height 5 ft. 3 in. (160.02 cm) (R); Pain 8/10; 13:37 Pain 7/10; sv 14:34 Pain 6/10; sv 15:13 BP 106 / 51; Pulse 56; Resp 21; Pulse Ox 100% ; Pain 7/10; ls4 12:06 Body Mass Index 36.49 (93.44 kg, 160.02 cm) ca1 MDM: 12:13 Patient medically screened. [facility] 13:51 Data reviewed: vital signs, nurses notes. Counseling: I had a detailed discussion with radha the patient and/or guardian regarding: the historical points, exam findings, and any diagnostic results supporting the discharge/admit diagnosis, radiology results, the need for further work-up and treatment in the hospital. ED course: I discussed the patient with Dr. Jacobs, will consult on admission.. 03/18 12:22 Order name: Basic Metabolic Panel; Complete Time: 13:18 [facility] 03/18 12:22 Order name: CBC with Diff; Complete Time: 12:55 [facility] 03/18 12:22 Order name: LFT's; Complete Time: 13:18 [facility] 03/18 12:22 Order name: Magnesium; Complete Time: 13:18 [facility] 03/18 12:22 Order name: NT PRO-BNP; Complete Time: 13:18 [facility] 03/18 12:22 Order name: PT-INR; Complete Time: 13:09 [facility] 03/18 12:22 Order name: Troponin (emerg Dept Use Only); Complete Time: 13:18 [facility] 03/18 12:22 Order name: Lipase; Complete Time: 13:18 [facility] 03/18 12:22 Order name: US Abdomen Limited; Complete Time: 13:27 [facility] 03/18 12:23 Order name: CT Chest, Abdomen, Pelvis - W/Contrast; Complete Time: 13:22 [facility] 03/18 13:46 Order name: CREATININE WHOLE BLOOD; Complete Time: 13:53 [facility] 03/18 12:22 Order name: EKG; Complete Time: 12:23 [facility] 03/18 12:22 Order name: Cardiac monitoring; Complete Time: 13:36 [facility] 03/18 12:22 Order name: EKG - Nurse/Tech; Complete Time: 12:43 [facility] 03/18 12:22 Order name: IV Saline Lock; Complete Time: 12:43 [facility] 03/18 12:22 Order name: Labs collected and sent; Complete Time: 12:43 [facility] 03/18 12:22 Order name: O2 Per Protocol; Complete Time: 12:43 [facility] 03/18 12:22 Order name: O2 Sat Monitoring; Complete Time: 12:43 [facility] Administered Medications: 12:37 Drug: Zofran (Ondansetron) 4 mg Route: IVP; Site: right antecubital; sv 13:36 Follow up: Response: No adverse reaction sv 12:39 Drug: morphine 4 mg {Note: rass3.} Route: IVP; Site: right antecubital; sv 13:37 Follow up: Pain 7/10 Adult; Response: No adverse reaction; No change in condition; Pain sv is unchanged, physician notified; RASS: Very agitated (+3) 13:43 Drug: fentaNYL (PF) 50 mcg {Note: rass3.} Route: IVP; Site: right antecubital; sv 14:34 Follow up: Pain 6/10 Adult; Response: No adverse reaction; Marked relief of symptoms; sv Pain is decreased; RASS: Restless (+1) 14:51 Drug: Zosyn 3.375 grams Route: IVPB; Infused Over: 60 mins; Site: right antecubital; ls4 15:51 Follow up: IV Status: Completed infusion; IV Intake: 100ml ls4 Disposition: 17:16 Co-signature as Attending Physician, Carlton Delgado MD. rn Disposition: 03/18/20 13:52 Hospitalization ordered by Chapo Ashley for Inpatient Admission. Preliminary diagnosis is Acute cholecystitis. - Bed requested for Operating Room. - Status is Inpatient Admission. ls4 - Condition is Stable. - Problem is new. - Symptoms are unchanged. Signatures: Dispatcher [employer] Michelle Masterson RN RN Toby Stinson PA PA [facility] Carlton Delgado MD MD rn Stewart, Lisa, RN RN ls4 Leonor Loaiza RN RN ca1 Corrections: (The following items were deleted from the chart) 16:06 13:52 Hospitalization Ordered by Chapo Ashley DO for Inpatient Admission. Preliminary ls4 diagnosis is Acute cholecystitis. Bed requested for Telemetry/MedSurg (Inpatient). Status is Inpatient Admission. Condition is Stable. Problem is new. Symptoms are unchanged. flor
--- NOTE | 2020-03-18 13:53 | ER ---
Nurse's Notes [facility] Name: Lety Beach Age: 64 yrs Sex: Female : 1955 Arrival Date: 03/18/2020 Time: 11:56 Bed 14 Private MD: Diagnosis: Acute cholecystitis Presentation: 03/18 12:06 Chief complaint: Patient states: at 0400 today, upper abdominal and epigastric pain, ca1 sharp, constant, radiating to the back. Noticed symptoms a few days ago, thought it was gassy pain. Pain is worse when laying down and sitting. Reports N/V, vomitus is greenish. Coronavirus screen: Proceed with normal triage. Patient denies a cough. Patient denies shortness of breath or difficulty breathing. Patient denies measured and/or subjective temperature greater than 100.4F prior to today's visit. Patient denies travel on a cruise ship or to a country the [facility] currently lists as an affected area. Patient denies contact with known and/or suspected case of COVID-19. Ebola Screen: Patient negative for fever greater than or equal to 101.5 degrees Fahrenheit, and additional compatible Ebola Virus Disease symptoms Patient denies exposure to infectious person. Patient denies travel to an Ebola-affected area in the 21 days before illness onset. No symptoms or risks identified at this time. Initial Sepsis Screen: Does the patient meet any 2 criteria? No. Patient's initial sepsis screen is negative. Does the patient have a suspected source of infection? No. Patient's initial sepsis screen is negative. Risk Assessment: Do you want to hurt yourself or someone else? Patient reports no desire to harm self or others. Onset of symptoms was March 18, 2020. 12:06 Method Of Arrival: Ambulatory ca1 12:06 Acuity: RICHAR 3 ca1 Historical: - Allergies: 12:10 EGG/POULTRY; ca1 - PMHx: 12:10 Depression; Diabetes - NIDDM; High Cholesterol; Hypertension; Thyroid problem; ca1 - PSHx: 12:10 Tubal ligation; Hysterectomy; ca1 - Immunization history:: Adult Immunizations up to date. - Social history:: Smoking status: Patient reports the use of cigarette tobacco products, 4-5 cig a day. Screenin:08 Abuse screen: Denies threats or abuse. Denies injuries from another. Nutritional sv screening: No deficits noted. Tuberculosis screening: No symptoms or risk factors identified. Fall Risk None identified. Assessment: 12:30 General: Appears in no apparent distress. uncomfortable, well developed, Behavior is sv cooperative, appropriate for age, restless. Pain: Complains of pain in epigastric area Pain radiates to back Pain currently is 8 out of 10 on a pain scale. Quality of pain is described as sharp, Pain began 1 day ago. Is continuous, Noted to be guarding, moaning, restless. Neuro: Level of Consciousness is awake, alert, obeys commands, Oriented to person, place, time, situation, Moves all extremities. Full function Gait is steady, Speech is normal. Respiratory: Airway is patent Respiratory effort is even, unlabored, Respiratory pattern is regular, symmetrical. GI: Abdomen is flat, Abd is soft X 4 quads Abdomen is tender to palpation in epigastric area Reports epigastric pain, nausea, vomiting. Derm: Skin is intact, Skin is pink, warm \T\ dry. Musculoskeletal: Range of motion: intact in all extremities. 12:44 Reassessment: US at the bedside. sv 13:43 Reassessment: Patient appears in no apparent distress at this time. No changes from sv previously documented assessment. Patient and/or family updated on plan of care and expected duration. Pain level reassessed. Patient is alert, oriented x 3, equal unlabored respirations, skin warm/dry/pink. 14:00 GI: Bowel sounds present X 4 quads. ls4 Vital Signs: 12:06 BP 138 / 67; Pulse 64; Resp 19 S; Temp 97.6(TE); Pulse Ox 98% on R/A; Weight 93.44 kg ca1 (R); Height 5 ft. 3 in. (160.02 cm) (R); Pain 8/10; 13:37 Pain 7/10; sv 14:34 Pain 6/10; sv 15:13 BP 106 / 51; Pulse 56; Resp 21; Pulse Ox 100% ; Pain 7/10; ls4 12:06 Body Mass Index 36.49 (93.44 kg, 160.02 cm) ca1 ED Course: 11:56 Patient arrived in ED. [facility] 12:00 Toby Wright PA is PHCP. [facility] 12:00 Carlton Delgado MD is Attending Physician. jmm 12:08 Michelle Harp, LUIS EDUARDO is Primary Nurse. sv 12:08 Patient has correct armband on for positive identification. Bed in low position. Call sv light in reach. Pulse ox on. NIBP on. Door closed. Head of bed elevated. 12:09 Triage completed. ca1 12:09 Awaiting ED provider evaluation. sv 12:10 Arm band placed on. sv 12:19 Nurse Practitioner and/or Physician Cargo Vessel Stewardess to see patient. sv 12:36 EKG done, by ED staff, reviewed by Toby ZAVALETA. Inserted saline lock: 20 gauge in sv right antecubital area, using aseptic technique. Blood collected. Flushed right antecubital with 5 ml normal saline. 12:57 US Abdomen Limited In Process Unspecified. EDMS 12:59 CT Chest, Abdomen, Pelvis - W/Contrast In Process Unspecified. EDMS 13:05 Patient moved back from CT. ks7 13:52 Chapo Ashley DO is Hospitalizing Provider. jmm 14:31 Report given to Stephanie HOFF. sv 15:01 No provider procedures requiring assistance completed. ls4 16:04 Report given to Vanna HOFF surgery, SBAR given. ls4 16:06 Patient admitted, IV remains in place. ls4 Administered Medications: 12:37 Drug: Zofran (Ondansetron) 4 mg Route: IVP; Site: right antecubital; sv 13:36 Follow up: Response: No adverse reaction sv 12:39 Drug: morphine 4 mg {Note: rass3.} Route: IVP; Site: right antecubital; sv 13:37 Follow up: Pain 7/10 Adult; Response: No adverse reaction; No change in condition; Pain sv is unchanged, physician notified; RASS: Very agitated (+3) 13:43 Drug: fentaNYL (PF) 50 mcg {Note: rass3.} Route: IVP; Site: right antecubital; sv 14:34 Follow up: Pain 6/10 Adult; Response: No adverse reaction; Marked relief of symptoms; sv Pain is decreased; RASS: Restless (+1) 14:51 Drug: Zosyn 3.375 grams Route: IVPB; Infused Over: 60 mins; Site: right antecubital; ls4 15:51 Follow up: IV Status: Completed infusion; IV Intake: 100ml ls4 Intake: 15:51 IV: 100ml; Total: 100ml. ls4 Outcome: 13:52 Decision to Hospitalize by Provider. [facility] 16:04 Admitted to OR accompanied by nurse, via stretcher, with chart. ls4 16:04 Condition: unchanged 16:04 Instructed on the need for admit. 16:06 Patient left the ED. ls4 Signatures: Dispatcher [employer] EDMichelle Jackson, LUIS EDUARDO RN Toby Wright PA PA jmm Stewart, Lisa RN RN ls4 Leonor Loaiza RN RN [facility] Chantel Moreno Kathleen, RN RN ks7 Corrections: (The following items were deleted from the chart) 14:34 13:43 fentaNYL (PF) 50 mcg IVP in right antecubital sv sv
[2020-03-18] MEDS ORDERED: PIPER/TAZO/NS 3.375gm 3.375 GM/100 ML BAG ONE (14:24)
--- NOTE | 2020-03-18 16:11 | P.HP ---
Certification for Inpatient Patient admitted to: Observation With expected LOS: <2 Midnights Patient will require the following post-hospital care: None Practitioner: I am a practitioner with admitting privileges, knowledge of patient current condition, hospital course, and medical plan of care. Services: Services provided to patient in accordance with Admission requirements found in Title 42 Section 412.3 of the Code of Federal Regulations <Buddy Ricketts - Last Filed: 03/18/20 16:27> Patient admitted to: Observation <Chapo Ashley - Last Filed: 03/18/20 18:08> Patient History Date of Service: 03/18/20 Primary Care Provider: Dallas Greene MD Reason for admission: Acute cholecystitis History of Present Illness: 64-year-old morbidly obese female with a past medical history of diabetes mellitus, 1/2 pack/Day cigarette smoker, hypertension, hypothyroidism and hypercholesterolemia presents to the emergency room complaining of worsening abdominal pain. Patient states that over the past week she has had increasing right upper quadrant pain. States that the pain is worse when she eats. Particularly fatty foods. In the emergency room patient's lab work is fairly unremarkable. No elevation in white cell count. CT of the abdomen pelvis shows a Mild bilateral subpleural interstitial lung opacities may indicate early idiopathic pulmonary fibrosis and Mild gallbladder distention. Abdominal ultrasounds shows the gallbladder is mildly distended with a 2 centimeter echogenic structure within the region the gallbladder neck likely a stone. Considerably less likely this represents adjacent bowel. Surgery was consulted and patient will undergo cholecystectomy possibly tonight or early tomorrow morning. On physical exam patient is mildly distressed. Complaining of right upper quadrant pain. States that it is better than when she arrived but is asking for better pain control. In the emergency room blood work is fairly unremarkable with no elevation in white cell count, no elevation in liver enzymes and lipase levels within normal limits. Patient be placed in observation and further evaluated. - Past Medical/Surgical History Diabetic: Yes -: Diabetes NIDDM -: Depression -: Hypertension -: HIgh Cholesterol -: Hypothyroid -: Hysterectomy -: MOles removed from left breast and right hand - Family History Mother -: Heart disease, Cancer Father -: Heart disease, Diabetes, Stroke - Social History Smoking Status: Current every day smoker Smoking therapy provided: No Patient receptive to therapy: No Alcohol use: No CD- Drugs: No Caffeine use: Yes Place of Residence: Home <Buddy Ricketts - Last Filed: 03/18/20 16:27> Date of Service: 03/18/20 Home medications list reviewed: Yes - Past Medical/Surgical History Psychosocial/ Personal History: Patient lives at home <Chapo Ashley - Last Filed: 03/18/20 18:08> Allergies eggs Allergy (Uncoded 10/31/18 01:06) Itching/Hives/Rash Home Medications: Atorvastatin Calcium [Lipitor*] 20 mg PO BID 10/31/18 Escitalopram [Lexapro*] 20 mg PO DAILY 10/31/18 Levothyroxine [Synthroid*] 40 mcg PO DAILY 10/31/18 Meclizine HCl 12.5 mg PO Q6H PRN #30 tablet 10/31/18 Metformin HCl [Metformin ER Osmotic] 1,000 mg PO BID 10/31/18 lisinopriL [Lisinopril] 20 mg PO DAILY 10/31/18 Review of Systems General: As per HPI Eyes: Unremarkable ENT: Unremarkable Respiratory: Unremarkable Cardiovascular: Unremarkable Gastrointestinal: Abdominal Pain (Right upper quadrant pain) Genitourinary: Unremarkable Musculoskeletal: Unremarkable Integumentary: Unremarkable Neurological: Unremarkable <Buddy Ricketts - Last Filed: 03/18/20 16:27> Physical Examination - Vital Signs Temperature: 97.6 F Blood Pressure: 138/67 Pulse: 64 Respirations: 19 Pulse Ox (%): 98 (RA) - Physical Exam General: Alert, Oriented x3, Mild distress, Obese HEENT: Atraumatic, Normocephalic, PERRLA Neck: Supple, Other (Trachea midline) Respiratory: Clear to auscultation bilaterally, Normal air movement Cardiovascular: No edema, Normal pulses, Regular rate/rhythm, Normal S1 S2 Capillary refill: <2 Seconds Gastrointestinal: Normal bowel sounds, Soft and benign, Non-distended, Tenderness (Mild tenderness with palpation to right upper quadrant) Musculoskeletal: No clubbing, No swelling, No contractures, No erythema Integumentary: No rashes, No breakdown, No significant lesion Neurological: Normal gait, Normal speech, Normal strength at 5/5 x4 extr, Normal tone - Studies Laboratory Data (last 24 hrs) 03/18/20 12:35: PT 12.2, INR 1.03 03/18/20 12:35: WBC 10.5, Hgb 14.9, Hct 44.4, Plt Count 298 03/18/20 12:35: Sodium 137, Potassium 3.9, BUN 17, Creatinine 0.67, Glucose 150 H, Magnesium 2.2, Total Bilirubin 0.4, AST 9 L, ALT 21, Alkaline Phosphatase 101, Lipase 167 <Buddy Ricketts - Last Filed: 03/18/20 16:27> - Studies Laboratory Data (last 24 hrs) 03/18/20 12:35: PT 12.2, INR 1.03 03/18/20 12:35: WBC 10.5, Hgb 14.9, Hct 44.4, Plt Count 298 03/18/20 12:35: Sodium 137, Potassium 3.9, BUN 17, Creatinine 0.67, Glucose 150 H, Magnesium 2.2, Total Bilirubin 0.4, AST 9 L, ALT 21, Alkaline Phosphatase 10 1, Lipase 167 <Chapo Ashley - Last Filed: 03/18/20 18:08> Assessment and Plan - Plan Impression: Acute cholecystitis with abdominal ultrasound finding of 2 cm stone in the neck of the gallbladder: Type 2 diabetes mellitus: Essential hypertension: Hypothyroidism: Nicotine abuse without withdrawal: Plan: Acute cholecystitis with abdominal ultrasound finding of 2 cm stone in the neck of the gallbladder: Patient scheduled for cholecystectomy tomorrow morning. Will keep NPO after midnight. Will continue gentle IV hydration and IV pain control. Will monitor daily labs. Patient is currently on IV Zosyn. Will continue current antibiotic therapy per surgery request. Likely discharge in the next 48 hr. Type 2 diabetes mellitus: Will resume home medications. Will check hemoglobin A1c. Will start Accu-Cheks a.c. HS and place patient on a sliding scale insulin. Essential hypertension: Will monitor blood pressure and resume home medications. Hypothyroidism: Will resume home medications. Nicotine abuse without withdrawal: Patient is currently refusing nicotine patch. Patient admits to smoking approximately half a pack of cigarettes per day. Discharge Plan: Home Plan to discharge in: 48 Hours - Advance Directives Does patient have a Living Will: No Does patient have a Durable POA for Healthcare: No - Code Status/Comfort Care Code Status Assessed: Yes Time Spent Managing Pts Care (In Minutes): 55 <Buddy Ricketts - Last Filed: 03/18/20 16:27> - Plan Case discussed at length with PA. Agree with evaluation, assessment and plan of care. Case also discuss with surgery. Patient had successful laparoscopic cholecystectomy. No complications noted. Surgery recommends discharge after surgery. Patient will be discharged home. Patient may continue with home medications. Recommend follow up with surgery within 1 week. Postsurgical precautions and recommendations provided. <Chapo Ashley - Last Filed: 03/18/20 18:08>
[2020-03-18] MEDS ORDERED: NA CHLORIDE 0.9% 1,000 ML ONE (16:19)
[2020-03-18] MEDS ORDERED: propofoL 200 MG/20 ML VIAL IV ONE (16:39)
[2020-03-18] MEDS ORDERED: ROCURONIUM 50 MG/5 ML VIAL IV ONE (16:39)
[2020-03-18] MEDS ORDERED: LIDOCAINE 2% MPF 5 ML VIAL ONE (16:40)
[2020-03-18] MEDS ORDERED: KETOROLAC 30 MG/ML INJ ONE (17:03)
[2020-03-18] MEDS ORDERED: dexAMETHasone 10 MG/ML VIAL ONE (17:04)
[2020-03-18] MEDS ORDERED: GLYCOPYRROLATE 0.2 MG/ML SYR ONE ×3 (17:12→17:20)
[2020-03-18] MEDS ORDERED: NEOSTIGMINE 1 MG/ML -5 ML ONE (17:20)
[2020-03-18] MEDS ORDERED: HYDROCODONE/APAP 7.5/325 MG TAB ONE (18:15)
[2020-03-18 18:26] VITALS: BP 100/78; TEMP 97.4; O2SAT 100
--- NOTE | 2020-03-18 19:49 | PREOPCON ---
Date of Consultation: 03/18/2020 Chief Complaint: Abdominal pain. History Of Present Illness: The patient is a 64-year-old female, who awoke this morning with acute o nset of nausea, vomiting and epigastric and right upper abdominal pain, occasionally going to the [facility]. She has had mild biliary colic in the past associated with indigestion, bloating, belching and he artburn, but this morning, it was severe. She came to the emergency room, was evaluated and I was co nsulted. She denies any diarrhea or constipation. No blood in her stool. No dysuria or hematuria. No sore throat, runny nose, cough, headaches, or dizziness. No chest pain. No fever or chills. Review of Systems: Otherwise unremarkable. Past Medical History: Diabetes, hypertension, hypothyroidism and hypercholesterolemia. Past Surgical History: Negative. Allergies: NO ALLERGIES. Social History: She denies smoking or drinking. Family History: Significant for diabetes and heart disease and liver cancer in the mother. Physical Examination: Vitals Signs: Stable. She is afebrile. General: She is awake, alert, oriented x3. Head and Neck: Cranial nerves 2 through 12 grossly within normal limits. No neck masses. No JVD. Throat clear. Neck is supple. Chest: Clear. Heart: S1 and S2. Abdomen: Soft, nondistended. Positive bowel sounds. Positive epigastric tenderness and right upper quadrant tenderness with minimal rebound. No rigidity or guarding Extremities: Adequately perfused . Nontender. Neurologic: Nonfocal. Radiographic Studies: Ultrasound of the abdomen reviewed. The patient has a gallstone in the neck o f the gallbladder. Duct not mobile. Common bile duct is obscured by the gallstones. Laboratory Data: Her LFTs, amylase and lipase are within normal limits. White count is 10.5. Assessment: Acute cholecystitis and cholelithiasis. Plan: Admit, n.p.o., IV fluid, IV antibiotic. To the OR for lap choly, possible open. The patient understands the risks, benefits, and alternatives and agrees to procedure. /MODL Voice ID: [id number] Report ID: [id number]
--- NOTE | 2020-03-19 03:11 | OP ---
Date of Procedure: 03/18/2020 Surgeon: Neri Jacobs MD Client Application Support Specialist: DALIA Montano. Preoperative Diagnoses: Acute cholecystitis and cholelithiasis. Postoperative Diagnoses: Acute cholecystitis and cholelithiasis. Procedure: Laparoscopic cholecystectomy. Estimated Blood Loss: Minimal. Specimen: Gallbladder. Findings: As above. Anesthesia: General. Complications: None. Disposition: The patient tolerated the procedure in stable condition, taken to Recovery in good gene ral condition. Description Of Procedure: The patient was brought to the OR and placed in supine position. General anesthesia begun. The patient was prepped and draped in usual sterile fashion. Marcaine 0.5% was in filtrated locally. A 15 blade was used to make a 1 cm incision just above the umbilicus. Subcutaneo us tissue divided. Fascia was identified and divided. A #1 Vicryl stay suture was placed. Peritone al cavity entered with sharp and blunt dissection and then three 5 mm trocars were placed under direc t vision, 1 in the epigastrium just to the right of midline and 2 in the right subcostal region. The n, laparoscopy revealed a distended gallbladder, which had to be aspirated. It was aspirated. Bile was clear consistent with hydrops, consistent with acute cholecystitis. Fundus was retracted superio rly. Infundibulum was identified and retracted inferolaterally. Cystic duct and cystic artery were clearly identified with blunt dissection. Clips were placed. Both structures were divided. Cautery was used to remove the gallbladder from the liver bed. Bleeding on the liver bed was controlled wit h cautery. Gallbladder was retrieved through the umbilicus via an EndoCatch bag. Right upper quadra nt was irrigated. Effluent was clear. No evidence of bleeding or bile leakage appreciated. Subsequ ently, all trocars were removed under direct vision. Stay sutures were tied to each other across the fascial defect. Subcutaneous wounds were irrigated. Bleeding controlled with cautery. 3-0 chromic used to approximate the subcutaneous tissue and close the skin. Sterile dressing was applied. The patient was awakened and taken to Recovery in good general condition. /MODL Voice ID: [id number] Report ID: [id number]
--- NOTE | 2020-03-19 03:19 | DS ---
Discharge Note: The patient will go to Day Surgery and home when stable. Disposition: Home. Condition: Stable. Discharge Instructions: Resume home medications and diet. Activity as tolerated. No heavy lifting. Remove outer dressing in 2 days. Shower. Keep wound clean and dry. Keep Steri-Strips on at all t imes. Tylenol No. 3 one tablet p.o. q.4 p.r.n. pain. Follow up in my office in 1 week. Call for ap pointment. Incentive spirometry is ordered. /MODL Voice ID: [id number] Report ID: [id number]
--- NOTE | 2020-03-19 06:47 | EKG ---
Test Date: 2020-03-18 Test Time: 12:36:55 Necktie Stitcher: JULIO CÉSAR MEASUREMENT RESULTS: Intervals: Rate: 55 NV: 152 QRSD: 82 QT: 436 QTc: 417 [place]: P: 38 NV: 152 QRS: 11 T: 48 INTERPRETIVE STATEMENTS: Sinus bradycardia Otherwise normal ECG Compared to ECG 07/23/2012 22:56:22 Sinus rhythm no longer present Electronically Signed On 03-19-20 06:45:39 CDT by Saravanan Austin
--- NOTE | 2020-03-19 10:05 | OP ---
Date of Procedure: 03/18/2020 Surgeon: Neri Jacobs MD Knotter Hand: DALIA Montano. Preoperative Diagnoses: Acute cholecystitis and cholelithiasis. Postoperative Diagnoses: Acute cholecystitis and cholelithiasis. Procedure: Laparoscopic cholecystectomy. Estimated Blood Loss: Minimal. Specimen: Gallbladder. Findings: As above. Anesthesia: General. Complications: None. Disposition: The patient tolerated the procedure in stable condition, taken to Recovery in good gene ral condition. Description Of Procedure: The patient was brought to the OR and placed in supine position. General anesthesia begun. The patient was prepped and draped in usual sterile fashion. Marcaine 0.5% was in filtrated locally. A 15 blade was used to make a 1 cm incision just above the umbilicus. Subcutaneo us tissue divided. Fascia was identified and divided. A #1 Vicryl stay suture was placed. Peritone al cavity entered with sharp and blunt dissection and then three 5 mm trocars were placed under direc t vision, 1 in the epigastrium just to the right of midline and 2 in the right subcostal region. The n, laparoscopy revealed a distended gallbladder, which had to be aspirated. It was aspirated. Bile was clear consistent with hydrops, consistent with acute cholecystitis. Fundus was retracted superio rly. Infundibulum was identified and retracted inferolaterally. Cystic duct and cystic artery were clearly identified with blunt dissection. Clips were placed. Both structures were divided. Cautery was used to remove the gallbladder from the liver bed. Bleeding on the liver bed was controlled wit h cautery. Gallbladder was retrieved through the umbilicus via an EndoCatch bag. Right upper quadra nt was irrigated. Effluent was clear. No evidence of bleeding or bile leakage appreciated. Subsequ ently, all trocars were removed under direct vision. Stay sutures were tied to each other across the fascial defect. Subcutaneous wounds were irrigated. Bleeding controlled with cautery. 3-0 chromic used to approximate the subcutaneous tissue and close the skin. Sterile dressing was applied. The patient was awakened and taken to Recovery in good general condition. Discharge Note: The patient will go to Day Surgery and home when stable. Disposition: Home. Condition: Stable. Discharge Instructions: Resume home medications and diet. Activity as tolerated. No heavy lifting. Remove outer dressing in 2 days. Shower. Keep wound clean and dry. Keep Steri-Strips on at all t imes. Tylenol No. 3 one tablet p.o. q.4 p.r.n. pain. Follow up in my office in 1 week. Call for ap pointment. Incentive spirometry is ordered. JONATHAN/MARKO Voice ID: [id number] Report ID: [id number]
--- NOTE | 2020-03-19 13:21 | P.DS ---
Admission Date: 03/18/20 Discharge Date: 03/19/20 Primary Care Provider: Dallas Greene MD Reason for Admission: Acute cholecystitis Consultations: Surgery- Dr Jacobs Procedures: Laparoscopic cholecystectomy Brief History of Present Illness: 64-year-old morbidly obese female with a past medical history of diabetes mellitus, 1/2 pack/Day cigarette smoker, hypertension, hypothyroidism and hypercholesterolemia presents to the emergency room complaining of worsening abdominal pain. Patient states that over the past week she has had increasing right upper quadrant pain. States that the pain is worse when she eats. Particularly fatty foods. In the emergency room patient's lab work is fairly unremarkable. No elevation in white cell count. CT of the abdomen pelvis shows a Mild bilateral subpleural interstitial lung opacities may indicate early idiopathic pulmonary fibrosis and Mild gallbladder distention. Abdominal ultrasounds shows the gallbladder is mildly distended with a 2 centimeter echogenic structure within the region the gallbladder neck likely a stone. Considerably less likely this represents adjacent bowel. Surgery was consulted and patient will undergo cholecystectomy possibly tonight or early tomorrow morning. On physical exam patient is mildly distressed. Complaining of right upper quadrant pain. States that it is better than when she arrived but is asking for better pain control. In the emergency room blood work is fairly unremarkable with no elevation in white cell count, no elevation in liver enzymes and lipase levels within normal limits. Patient be placed in observation and further evaluated. Hospital Course: During this hospital course patient was admitted for acute cholecystitis with findings of distended gallbladder by CT abdomen pelvis with a 2 cm stone at neck of gallbladder found on abdomen ultrasound. Surgery was consulted-doctor Jacobs. Patient had been NPO most of the day so she was taken to surgery last night. Patient underwent surgical removal of gallbladder. She tolerated surgery well, pain was controlled and was discharged early this morning from the emergency room to follow up with Dr. Jacobs postoperatively in clinic. <Buddy Ricketts - Last Filed: 03/19/20 13:16> Admission Date: 03/18/20 Discharge Date: 03/19/20 <Leon Mayberry - Last Filed: 03/19/20 13:35> Disposition: ROUTINE DISCHARGE Discharge Condition: GOOD Vital Signs/Physical Exam: Temp Pulse Resp BP Pulse Ox 97.4 F 68 20 100/78 98 03/18/20 18:22 03/18/20 18:22 03/18/20 18:22 03/18/20 18:22 03/18/20 16:32 General: Other (Deferred) Other Physical/Emotional Findings: Physical exam was deferred. Laboratory Data at Discharge: WBC 10.5 K/uL (4.3-10.9) 03/18/20 12:35 Hgb 14.9 g/dL (12.0-15.0) 03/18/20 12:35 Hct 44.4 % (36.0-45.0) 03/18/20 12:35 Plt Count 298 K/uL (152-406) 03/18/20 12:35 PT 12.2 SECONDS (9.5-12.5) 03/18/20 12:35 INR 1.03 03/18/20 12:35 Sodium 137 mmol/L (136-145) 03/18/20 12:35 Potassium 3.9 mmol/L (3.5-5.1) 03/18/20 12:35 BUN 17 mg/dL (7-18) 03/18/20 12:35 Creatinine 0.67 mg/dL (0.55-1.3) 03/18/20 12:35 Glucose 150 mg/dL (74-106) H 03/18/20 12:35 Magnesium 2.2 mg/dL (1.8-2.4) 03/18/20 12:35 Total Bilirubin 0.4 mg/dL (0.2-1.0) 03/18/20 12:35 AST 9 U/L (15-37) L 03/18/20 12:35 ALT 21 U/L (12-78) 03/18/20 12:35 Alkaline Phosphatase 101 U/L (45-117) 03/18/20 12:35 Lipase 167 U/L (73-393) 03/18/20 12:35 Imagings Data: CT abdomen pelvis with findings of distended gallbladder. Abdomen ultrasound with finding of 2 cm stone at neck of gallbladder and distended gallbladder. <Buddy Ricketts - Last Filed: 03/19/20 13:16> Vital Signs/Physical Exam: Temp Pulse Resp BP Pulse Ox 97.4 F 68 20 100/78 98 03/18/20 18:22 03/18/20 18:22 03/18/20 18:22 03/18/20 18:22 03/18/20 16:32 Laboratory Data at Discharge: WBC 10.5 K/uL (4.3-10.9) 03/18/20 12:35 Hgb 14.9 g/dL (12.0-15.0) 03/18/20 12:35 Hct 44.4 % (36.0-45.0) 03/18/20 12:35 Plt Count 298 K/uL (152-406) 03/18/20 12:35 PT 12.2 SECONDS (9.5-12.5) 03/18/20 12:35 INR 1.03 03/18/20 12:35 Sodium 137 mmol/L (136-145) 03/18/20 12:35 Potassium 3.9 mmol/L (3.5-5.1) 03/18/20 12:35 BUN 17 mg/dL (7-18) 03/18/20 12:35 Creatinine 0.67 mg/dL (0.55-1.3) 03/18/20 12:35 Glucose 150 mg/dL (74-106) H 03/18/20 12:35 Magnesium 2.2 mg/dL (1.8-2.4) 03/18/20 12:35 Total Bilirubin 0.4 mg/dL (0.2-1.0) 03/18/20 12:35 AST 9 U/L (15-37) L 03/18/20 12:35 ALT 21 U/L (12-78) 03/18/20 12:35 Alkaline Phosphatase 101 U/L (45-117) 03/18/20 12:35 Lipase 167 U/L (73-393) 03/18/20 12:35 <Leon Mayberry - Last Filed: 03/19/20 13:35> Patient Discharge Instructions: Patient was given destruction is on discharge to follow up with surgery postoperatively. Activity: Ad gino <Buddy Ricketts - Last Filed: 03/19/20 13:16> <Leon Mayberry - Last Filed: 03/19/20 13:35> Home Medications: Atorvastatin Calcium [Lipitor*] 20 mg PO BID 10/31/18 Escitalopram [Lexapro*] 20 mg PO DAILY 10/31/18 Levothyroxine [Synthroid*] 40 mcg PO DAILY 10/31/18 Meclizine HCl 12.5 mg PO Q6H PRN #30 tablet 10/31/18 Metformin HCl [Metformin ER Osmotic] 1,000 mg PO BID 10/31/18 lisinopriL [Lisinopril] 20 mg PO DAILY 10/31/18 Followup: Neri Jacobs MD [ACTIVE - CAN ADMIT] -
== END 2020-03-18 19:05 | disposition home or self-care (01) ==
LOC: ER 11:54 → ERHOLD 16:16
PROVIDERS: ADMIT Family Medicine; ATTEND Family Medicine
PROC: 0FT44ZZ Resection of Gallbladder, Percutaneous Endoscopic Approach (ICD-10-PCS; principal; 2020-03-18 16:00)
DX: K80.12 Calculus of gallbladder with acute and chronic cholecystitis without obstruction (principal); E11.9 Type 2 diabetes mellitus without complications; I10 Essential (primary) hypertension; E03.9 Hypothyroidism, unspecified; E78.00 Pure hypercholesterolemia, unspecified; E66.01 Morbid (severe) obesity due to excess calories; Z68.36 Body mass index [BMI] 36.0-36.9, adult; F32.9 Major depressive disorder, single episode, unspecified; F17.210 Nicotine dependence, cigarettes, uncomplicated; Z11.59 Encounter for screening for other viral diseases; Z91.012 Allergy to eggs; Z90.710 Acquired absence of both cervix and uterus; Z80.9 Family history of malignant neoplasm, unspecified; Z83.3 Family history of diabetes mellitus; Z82.49 Family history of ischemic heart disease and other diseases of the circulatory system; Z82.3 Family history of stroke; Z84.89 Family history of other specified conditions
CPT/HCPCS: 96365; 93005; 85025; 80048; 36415; 83735; 85610; 82565; 82947; 80076; 88304; 84484; 83690; 83880; 71260; 74177; 76705; 96375; 99285; 47562; Q9967; J2704; J3010 ×2; J2543; J1100; J2710; J7030; J2405 ×2